=== PATIENT | male | born 1955 | race Caucasian/White ===

== ENCOUNTER 2017-02-25 05:59 | Inpatient (IN) | payer BC ==
[~2017-02-25] VITALS: Ht 182.9 cm; Wt 99.5 kg
[~2017-02-25 05:59] MED LIST: BYST5TAB2 PO; IBUP1TAB7 PO; LISI-519 PO; OMEP20TA93 PO
[2017-02-25] MEDS ORDERED: ATOR20TA15 PO (06:35)
[2017-02-25] MEDS: LACTATED RINGER'S 1000 ML IV PRN ×2 (06:45→11:28)
--- NOTE | 2017-02-25 06:48 | PD.VS.PN ---
Pre-operative Note Pre-operative diagnosis: PAD, R LE claudication Planned procedure: R groin reconstruction and angiogram, possible endovascular intervention Interval History: Pt has been feeling well over past days since I saw him in clinic. No changes in health that would preclude OR. Labs: pending Blood: T&S Imaging: CTA (ZAVALETA) reviewed. Orders: NPO Ancef 2g IV OCTOR Post-operative destination: PACU, CPCU Operative site marked: Yes Consent: Informed consent has been obtained from Joni Dave. I have explained the procedure in detail and discussed the risks, benefits, and potential complications. All questions have been answered. Patient contact information: [phone] Leonard Rebolledo MD Feb 25, 2017 06:48
[2017-02-25] MEDS ORDERED: INSULIN HUMAN REGULAR 1,000 UNITS/10 ML VIAL SQ PRN (07:00)
[2017-02-25] MEDS ORDERED: SODIUM CHLORID 0.9% 500 ML IV PRN (07:00)
[2017-02-25] MEDS ORDERED: POVIDONE IODINE 5% (ANTISEPSIS KIT) 4 APPLICATIONS EACH NARE PRN (07:00)
[2017-02-25] MEDS ORDERED: CHLORHEXIDINE GLUCONATE 2 % 1 PACK (2 CLOTHS) TOPICAL PRN (07:00)
[2017-02-25] MEDS ORDERED: METOPROLOL TARTRATE 25 MG TAB PO PRN (07:00)
[2017-02-25 07:02] LABS: AUTOMATED NEUTROPHIL # 5.3 TH/MM3 (1.8-7.7); BASOPHIL # 0.1 TH/MM3 (0-0.2); BASOPHIL % 0.8 % (0.0-2.0); EOSINOPHIL # 0.2 TH/MM3 (0-0.4); EOSINOPHIL % 1.9 % (0.0-4.0); HEMATOCRIT 46.2 % (39.0-51.0); HEMO FLAGS DIFF FINAL; LYMPH % 22.7 % (9.0-44.0); LYMPHOCYTE # 1.8 TH/MM3 (1.0-4.8); MEAN CELL VOLUME 88.3 FL (80.0-100.0); MEAN CORPUSCULAR HEMOGLOBIN 30.2 PG (27.0-34.0); MEAN CORPUSCULAR HGB CONC 34.1 % (32.0-36.0); MONO % 8.8 % (0.0-8.0); NEUT % 65.8 % (16.0-70.0); PLATELET COUNT 251 TH/MM3 (150-450); RED BLOOD COUNT 5.23 MIL/MM3 (4.50-5.90); RED CELL DISTRIBUTION WIDTH 13.6 % (11.6-17.2); WHITE BLOOD COUNT 8.1 TH/MM3 (4.0-11.0)
[2017-02-25] MEDS ORDERED: HEPARIN-NS/PF INJ 500 ML ONE ×2 (07:08→09:53)
[2017-02-25] MEDS ORDERED: THROMBIN (TOPICAL) 20,000 UNIT SPRAY KIT ONE (07:08)
[2017-02-25] MEDS ORDERED: HEPARIN SODIUM - IV 10,000 UNITS/10 ML VIAL ONE (07:08)
[2017-02-25] MEDS ORDERED: ceFAZolin 2 GM PREMIX 50 ML ONE (07:09)
[2017-02-25] MEDS ORDERED: BUPIVACAINE HCL PF 0.5% 30 ML VIAL ONE (07:09)
[2017-02-25 07:10] LABS: PROTHROMBIN TIME - PATIENT 10.3 SEC (9.8-11.6)
[2017-02-25 07:18] LABS: BICARBONATE 24.8 MEQ/L (21.0-32.0); POTASSIUM 4.6 MEQ/L (3.5-5.1)
[2017-02-25] MEDS ORDERED: MIDAZOLAM HCL 2 MG/2 ML VIAL ONE (07:32)
[2017-02-25] MEDS ORDERED: ACETAMINOPHEN 1000 MG/100 ML 100 ML IV ONE (07:32)
[2017-02-25] MEDS ORDERED: FAMOTIDINE 20 MG/2 ML VIAL ONE (07:32)
[2017-02-25] MEDS ORDERED: IOHEXOL 300 INJ 50 ML IV ONE (09:05)
--- NOTE | 2017-02-25 10:19 | HHI.PR ---
Immediate Post Op Note Procedure Date: Feb 25, 2017 Pre Op Diagnosis: PAD, R LE Post Op Diagnosis: PAD, R LE Surgeon: Leonard Rebolledo Front Facer(s): Mana Mata Procedure: 1. R ilioprofunda with 8mm Dacron 2. R SOLE FILLER-SFA with 8mm Dacron 3. R LE angiogram Findings: extensive groin disease Complications: none Specimen(s) removed: none for pathology Estimated blood loss: 150mL Anesthesia: General Drains: None Fluids: 1700mL IVF Urinary Output (mLs): 285 Patient to: PACU Patient Condition: Good Implant/Devices: SEE IMPLANT LOG (if applicable) Date/Time of Procedure: SEE SURGICAL CARE RECORD Leonard Rebolledo MD Feb 25, 2017 10:19
[2017-02-25] MEDS ORDERED: BISACODYL 10 MG SUPP RECTAL PRN (10:30)
[2017-02-25] MEDS ORDERED: SENNOSIDES 8.6 MG TAB PO PRN (10:30)
[2017-02-25] MEDS ORDERED: HYDROmorphone HCL 2 MG TAB PO PRN (10:30)
[2017-02-25] MEDS ORDERED: MAGNESIUM HYDROXIDE SUSP 30 ML CUP PO PRN (10:30)
[2017-02-25] MEDS ORDERED: LACTULOSE SYRUP 20 GM/30 ML CUP PO PRN (10:30)
[2017-02-25 11:28] VITALS: BP 121/82; PULSE 68; RESP 17; TEMP 98; O2SAT 97
[2017-02-25 15:03] VITALS: BP 99/78; PULSE 72; RESP 17; TEMP 98.1; O2SAT 95
[2017-02-25 15:05] VITALS: PULSE 72
[2017-02-25 19:00] VITALS: BP 80/64; PULSE 75; RESP 17; TEMP 98.1; O2SAT 92
--- NOTE | 2017-02-25 19:06 | EKG ---
Date Performed: 02/25/2017 Time Performed: 06:57:19 PTAGE: 61 years EKG: Sinus rhythm NORMAL ECG PREVIOUS TRACING : 04/01/2012 15.01 Compared to prior tracing no significant change DOCTOR: Arron Hough Interpretating Date/Time 02/25/2017 19:05:09
[2017-02-25] MEDS: FAMOTIDINE 20 MG TAB PO SCH (20:19)
[2017-02-25] MEDS: DOCUSATE SODIUM 50 MG/SENNA 8.6 MG TAB PO SCH (20:19)
[2017-02-25] MEDS: LISINOPRIL 5 MG TAB PO SCH (20:19)
[2017-02-25] MEDS: ATORVASTATIN 40 MG TAB PO SCH (21:00)
[2017-02-25 23:00] VITALS: BP 110/65; PULSE 71; RESP 18; TEMP 97.9; O2SAT 94
[2017-02-26] VITALS (15 sets, daily range): BP systolic 125–141; BP diastolic 62–72; PULSE 63–81; RESP 14–18; TEMP 97.9–99.3; O2SAT 92–97
--- NOTE | 2017-02-26 05:25 | MP ---
cc: PILI REBOLLEDO DATE OF SURGERY 02/25/2017 PREOPERATIVE DIAGNOSIS Right lower extremity claudication. POSTOPERATIVE DIAGNOSIS Right lower extremity claudication. PROCEDURE 1. Right ilioprofunda bypass. 2. Right common femoral to superficial femoral artery bypass. 3. Right lower extremity angiogram. ATTENDING SURGEON Pili Rebolledo MD ANESTHESIA General. INDICATIONS FOR PROCEDURE Mr. Dave is a 61-year-old gentleman with right lower extremity claudication. He was taken to the operating room for groin reconstruction and potential endovascular intervention of his lower extremities. DESCRIPTION OF PROCEDURE Informed consent was obtained from the patient. He was taken to the operating room and placed supine on the operating room table. An appropriate time-out was taken to confirm the patient's identity, the operative site and the planned procedure. The administration 2 grams of Ancef was initiated prior to the skin incision and will be discontinued after a single preoperative dose. Everyone in the room agreed with the time-out and we proceeded. He was prepped from his nipples to his toes. A vertical incision was made in the patient's right groin and carried down through the subcutaneous tissue with electrocautery. The external iliac artery was identified and dissected free up underneath the inguinal ligament. The profunda, common femoral and superficial femoral artery were all dissected free as well as side branches of the common femoral. The patient was systemically heparinized and then proximal and distal control of all these branches were obtained with profunda clamps and a longitudinal arteriotomy was made with an 11 blade, extended with [place] scissors. The artery was attempted to be endarterectomized but the endarterectomy plane was so deep to the remaining deep median adventitial layers were felt to be tenuous and as such the groin interposition was then selected. The distal external artery was transected with Metzenbaum scissors as well as the proximal profunda artery. The SFA was resected down several centimeters below its origin. 8-mm Dacron was brought up onto the field and sewn end-to-end to the external iliac artery and end-to-end to the profunda femoris artery. The clamps were released and there was a nice pulse in the profunda. Clamps were then reapplied to the Dacron and the anterior graftotomy was made with an 11 blade and extended with Marcus scissors. The 8-mm Dacron was spatulated and sewn end-to-side to the previous graft with 5-0 Prolene suture and end-to-end to the SFA with 5-0 Prolene suture. At the completion it was flushed and noted to be hemostatic. There is a nice pulse in both branches of the profunda as well as the SFA. A 21-gauge micropuncture needle was used to access the SFA jump graft. This was exchanged using Seldinger technique for a micropuncture sheath through which a 0.035 Glidewire was introduced. The micropuncture sheath was exchanged for a 6-Lao, 25-cm sheath and a CXI catheter was placed over the wire into the sheath and the Glidewire was exchanged for a SECTION MAINTAINER wire. Multiple attempts were made to recanalized the popliteal artery but these were unsuccessful. The wire, catheter and sheath were removed and the graftotomy was closed with 5-0 Prolene sutures. At the completion it was flushed and noted to be hemostatic. The clamps were released. The heparin was reversed with protamine. The wound was irrigated, infiltrated with Marcaine and closed with 2-0 Polysorb, 3-0 Polysorb and 4-0 Monocryl. Sponge and needle counts were correct at the end of the case. I was present and scrubbed for the entire procedure. INTERPRETATION OF IMAGES The patient has a patient distal SFA but an occluded popliteal artery and then yoana-geniculate collaterals reconstitute the peroneal artery in the proximal calf. MD CASSANDRA Abreu/NUNU /6:12 PM /5:04 AM
[2017-02-26 05:59] LABS: HEMATOCRIT 39.4 % (39.0-51.0); MEAN CELL VOLUME 88.5 FL (80.0-100.0); MEAN CORPUSCULAR HEMOGLOBIN 29.7 PG (27.0-34.0); MEAN CORPUSCULAR HGB CONC 33.5 % (32.0-36.0); PLATELET COUNT 242 TH/MM3 (150-450); RED BLOOD COUNT 4.45 MIL/MM3 (4.50-5.90); RED CELL DISTRIBUTION WIDTH 13.5 % (11.6-17.2); REVIEW FLAG FINAL; WHITE BLOOD COUNT 13.1 TH/MM3 (4.0-11.0)
[2017-02-26 06:18] LABS: BICARBONATE 27.2 MEQ/L (21.0-32.0); POTASSIUM 3.7 MEQ/L (3.5-5.1)
[2017-02-26] MEDS: FAMOTIDINE 20 MG TAB PO SCH ×2 (08:48→20:25)
[2017-02-26] MEDS: DOCUSATE SODIUM 50 MG/SENNA 8.6 MG TAB PO SCH ×2 (08:48→20:56)
[2017-02-26] MEDS: ASPIRIN 325 MG TAB PO SCH (08:48)
[2017-02-26] MEDS: LISINOPRIL 5 MG TAB PO SCH ×2 (08:56→20:25)
[2017-02-26] MEDS: NEBIVOLOL 5 MG TAB PO SCH (08:56)
--- NOTE | 2017-02-26 09:52 | PD.VS.PN ---
Subjective POD #: 1 Procedure(s): R ilioprofunda with 8mm Dacron R OUTPATIENT PHYSICAL THERAPIST ASSISTANT-SFA with 8mm Dacron R LE angiogram Subjective/Hospital Course Afebrile 61/M with improved RIGHT lower extremity pain and burning sensation Pt w/o complaints Pt ambulated this am w/o difficulty Objective Vitals/I&O Date Time Temp Pulse Resp B/P (MAP) Pulse Ox O2 Delivery O2 Flow Rate FiO2 02/26/17 07:00 99.3 63 14 135/72 (93) 97 02/26/17 07:00 63 02/26/17 07:00 Nasal Cannula 2.00 02/26/17 03:00 97.9 69 16 141/70 (93) 95 02/26/17 03:00 95 Nasal Cannula 3.00 02/26/17 02:58 18 02/25/17 23:00 71 02/25/17 23:00 97.9 71 18 110/65 (80) 94 02/25/17 23:00 94 Nasal Cannula 2.00 02/25/17 19:00 92 Nasal Cannula 2.00 02/25/17 19:00 98.1 75 17 80/64 (69) 92 02/25/17 15:05 72 02/25/17 15:03 98.1 72 17 99/78 (85) 95 02/25/17 11:28 98.0 68 17 121/82 (95) 97 02/26/17 02/26/17 02/26/17 07:00 15:00 23:00 Intake Total 960 ml Output Total 930 ml Balance 30 ml Exam: GENERAL: A&OX3,NAD,GCS15 SKIN: Warm and dry/ Provena wound vac to R groin intact w/o swelling or hematoma CARDIOVASCULAR: Regular rate and rhythm without murmurs, gallops, or rubs. RESPIRATORY: Breath sounds equal bilaterally. No accessory muscle use. GASTROINTESTINAL: Abdomen soft, non-tender, nondistended. MUSCULOSKELETAL: No cyanosis/edema/ LE warm w/ motor intact Palpable L DP Biphasic R DP/PT heard via Doppler Laboratory Laboratory Tests Test 02/26/17 04:00 White Blood Count 13.1 Red Blood Count 4.45 Hemoglobin 13.2 Hematocrit 39.4 Mean Corpuscular Volume 88.5 Mean Corpuscular Hemoglobin 29.7 Mean Corpuscular Hemoglobin Concent 33.5 Red Cell Distribution Width 13.5 Platelet Count 242 Mean Platelet Volume 8.2 Blood Urea Nitrogen 13 Creatinine 1.01 Random Glucose 109 Calcium Level 8.3 Sodium Level 139 Potassium Level 3.7 Chloride Level 104 Carbon Dioxide Level 27.2 Anion Gap 8 Estimat Glomerular Filtration Rate 75 Assessment and Plan Assessment: (1) PAD (peripheral artery disease) Plan 61/M S/P Right lower extremity revascularization -POD 1 Doing well- reports improved symptoms Pain controlled Pt ambulating w/o difficulty LE warm with motor intact Strong distal pulses present Plan Continue PT/OOB/ ambulation OK to transfer to CPCU D/C MIVF/A charleen/Jaswant EARL [facility]/[employer] [phone] Discharge Planning 1-3 days Ina Tompkins Feb 26, 2017 09:52
[2017-02-26] MEDS ORDERED: ENOXAPARIN SODIUM 30 MG/0.3 ML SYRINGE SQ SCH (10:00)
[2017-02-26] MEDS: ATORVASTATIN 40 MG TAB PO SCH (20:25)
[2017-02-27] VITALS (10 sets, daily range): BP systolic 139; BP diastolic 60–63; PULSE 73–90; RESP 16–18; TEMP 97.8–98.7; O2SAT 93
--- NOTE | 2017-02-27 07:38 | PD.VS.PN ---
Subjective POD #: 2 Procedure(s): R ilioprofunda with 8mm Dacron R PAYROLL BENEFITS CLERK-SFA with 8mm Dacron R LE angiogram Subjective/Hospital Course Looks great; foot felt better last night Ambulating Jaydon po voiding Objective Vitals/I&O Date Time Temp Pulse Resp B/P (MAP) Pulse Ox O2 Delivery O2 Flow Rate FiO2 02/27/17 07:15 85 02/27/17 07:15 97.8 80 18 139/60 (86) 93 02/27/17 06:09 90 02/27/17 05:17 78 02/27/17 04:05 76 02/27/17 03:10 98.7 82 16 139/63 (88) 93 02/27/17 03:10 74 02/27/17 02:20 77 02/27/17 01:16 81 02/27/17 00:13 73 02/26/17 23:25 98.2 81 18 133/64 (87) 93 02/26/17 23:23 76 02/26/17 22:00 76 02/26/17 21:00 74 02/26/17 20:00 74 02/26/17 19:00 92 Room Air 02/26/17 19:00 98.0 70 17 128/69 (88) 92 02/26/17 19:00 70 02/26/17 18:48 67 02/26/17 17:00 77 02/26/17 16:44 69 02/26/17 15:29 16 02/26/17 15:04 98.2 67 18 125/62 (83) 94 02/26/17 15:04 94 Room Air 02/26/17 15:04 65 02/26/17 14:17 65 02/26/17 12:23 70 02/26/17 11:00 98.9 73 16 138/70 (92) 92 02/27/17 02/27/17 02/27/17 07:00 15:00 23:00 Intake Total 720 ml Output Total 775 ml Balance -55 ml Exam: R groin slightly ecchymotic; VAC removed - no erythema Assessment and Plan Assessment: (1) PAD (peripheral artery disease) Plan POD#2 s/p R groin reconstruction doing well ready for d/c today Discharge Planning today Leonard Rebolledo MD Feb 27, 2017 07:38
--- NOTE | 2017-02-27 07:40 | PD.VS.DC ---
Discharge Summary Admission Date: Feb 25, 2017 at 05:59 Discharge Date: Feb 27, 2017 Admission Diagnosis: (1) PAD (peripheral artery disease) Discharge Diagnosis: (1) PAD (peripheral artery disease) ICD Codes: I73.9 - Peripheral vascular disease, unspecified Brief History from admission 61 yo male with PAD and short distance R LE claudication, failed conservative therapy. Procedure(s): R ilioprofunda with 8mm Dacron R SCREEN PRINTING STENCIL PREPARER-SFA with 8mm Dacron R LE angiogram Significant Findings Laboratory Tests Test 02/25/17 06:45 02/26/17 04:00 Monocytes (%) (Auto) 8.8 % (0.0-8.0) Chloride Level 109 MEQ/L (98-107) Estimat Glomerular Filtration Rate 77 ML/MIN (>89) 75 ML/MIN (>89) White Blood Count 13.1 TH/MM3 (4.0-11.0) Red Blood Count 4.45 MIL/MM3 (4.50-5.90) Random Glucose 109 MG/DL (74-106) Calcium Level 8.3 MG/DL (8.5-10.1) Hospital Course: Pt underwent extensive R groin reconstruction on 02/25. Did great post- operatively. Pain controlled, ambulating, and ricardo reg diet. Noted that his foot felt much better than preop. Ready for d/c POD#2. Discharge Condition: Good Discharge Disposition: Discharge Home Any questions or concerns: Call [facility] at [facility] [phone] Leonard Rebolldeo MD Feb 27, 2017 07:40
[2017-02-27] MEDS: LISINOPRIL 5 MG TAB PO SCH (07:56)
[2017-02-27] MEDS: DOCUSATE SODIUM 50 MG/SENNA 8.6 MG TAB PO SCH (07:57)
[2017-02-27] MEDS: ASPIRIN 325 MG TAB PO SCH (07:57)
[2017-02-27] MEDS: NEBIVOLOL 5 MG TAB PO SCH (07:57)
[2017-02-27] MEDS: FAMOTIDINE 20 MG TAB PO SCH (07:57)
[2017-02-27] MEDS ORDERED: ENOXAPARIN SODIUM 40 MG/0.4 ML SYRINGE SQ SCH (09:00)
== END 2017-02-27 10:10 | disposition home or self-care (01) | DRG 272 ==
LOC: HSDI 05:59 → HCVI 11:00 → HCPC 02-26 12:15
PROVIDERS: ADMIT Surgery; ATTEND Surgery
PROC: 041H0JH Bypass Right External Iliac Artery to Right Femoral Artery with Synthetic Substitute, Open Approach (ICD-10-PCS; principal; 2017-02-25 07:42)
PROC: 041K0JH Bypass Right Femoral Artery to Right Femoral Artery with Synthetic Substitute, Open Approach (ICD-10-PCS; 2017-02-25 07:42)
PROC: B41F1ZZ Fluoroscopy of Right Lower Extremity Arteries using Low Osmolar Contrast (ICD-10-PCS; 2017-02-25 07:42)
DX: I73.9 Peripheral vascular disease, unspecified (principal)
CPT/HCPCS: 80048; 85025; 85027; 85610; 86850; 86900; 86901; 93005; J0131; J0690; J1644; J1650; J2250; J7120

== ENCOUNTER 2017-07-03 06:46 | Day surgery (SDC) | payer BC ==
[~2017-07-03] VITALS: Ht 182.9 cm; Wt 93.7 kg
[~2017-07-03 06:46] MED LIST changes: +ATOR20TA15 PO
[2017-07-03] MEDS ORDERED: IOHEXOL 350 MG/ML 100 ML BTL (for Cath Lab) OTHER ONE (06:47)
[2017-07-03 07:32] VITALS: BP 100/74; PULSE 68; RESP 18; TEMP 98.5; O2SAT 95
[2017-07-03] MEDS ORDERED: LISI20TA PO (07:32)
[2017-07-03] MEDS ORDERED: METO100T PO (07:32)
[2017-07-03] MEDS ORDERED: SODIUM BICARBONATE 100 MEQ in D5W 1000 ML IV SCH (07:45)
[2017-07-03] MEDS ORDERED: MIDAZOLAM HCL 5 MG/5 ML VIAL ONE (09:40)
[2017-07-03] MEDS ORDERED: HEPARIN-NS/PF FLUSH BAG 2,000 ML IV FLUSH ONE (09:40)
--- NOTE | 2017-07-03 09:43 | PD.VS.PN ---
Pre-operative Note Pre-operative diagnosis: R LE claudication, PAD Planned procedure: Aortogram w/ R LE angiogram, possible endovascular intervention Interval History: Pt has persistent R LE claudication but no rest pain and no tissues loss. Orders: NPO Post-operative destination: DOCU Operative site marked: Yes Consent: Informed consent has been obtained from Joni Dave. I have explained the procedure in detail and discussed the risks, benefits, and potential complications. All questions have been answered. Leonard Rebolledo MD Jul 03, 2017 09:43
[2017-07-03] MEDS ORDERED: LIDOCAINE HCL 1% PF 30 ML VIAL ONE (09:50)
[2017-07-03] MEDS ORDERED: HEPARIN SODIUM - IV 10,000 UNITS/10 ML VIAL ONE (10:05)
--- NOTE | 2017-07-03 10:31 | HHI.PR ---
cc: Leonard Rebolledo MD Immediate Post Op Note Procedure Date: Jul 03, 2017 Pre Op Diagnosis: R LE claudication, PAD Post Op Diagnosis: R LE claudication, PAD Surgeon: Leonard Rebolledo Crawler Tractor Operator(s): none Procedure: Aortogram w/ R LE angiogram R CHERYL orbital atherectomy, LINING PRINTER R SALESPERSON DRIVER angioseal Findings: high grade stenosis R CHERYL, successful LINING PRINTER to 8mm Additional Information: L SALESPERSON DRIVER 4F sheath removed in laboratory technical specialist Complications: none Specimen(s) removed: none Estimated blood loss: 10mL Anesthesia: MAC Drains: None Patient to: Other (DOCU) Patient Condition: Good Implant/Devices: SEE IMPLANT LOG (if applicable) Date/Time of Procedure: SEE SURGICAL CARE RECORD Leonard Rebolledo MD Jul 03, 2017 10:31
[2017-07-03] MEDS ORDERED: CLOPIDOGREL 75 MG TAB PO ONE (10:45)
--- NOTE | 2017-07-03 10:49 | CATHPROC ---
[place] HIS Report Study Information Study Number Admission Scheduled Start Study Start [id number] Jul 03 2017 6:46AM 07/03/2017 Jul 03 2017 9:33AM [place] Service Cath Endovascular Study Admit Source Facility Department Other [facility] - Live In Housekeeper Physician and Clinical Staff Initial MD Rebolledo, Leonard Log Brander Amber Almanzar,JESSICA Recorder Shae Herrera,RT(R) (BS) Scrub Chuy Greer,RT(R) Procedures Performed Procedure Location (Site) Vessel Name Abdominal Angiogram Abd Aorta (A3) Aorta Abdominal Angiogram Iliac R. Com. (R4) [place] Art. OPERATIONS VICE PRESIDENT Iliac R. Com. (R4) [place] Art. Wire insertion Fem Art (right) Femoral Art Equipment Time Hvac Maintenance Technician Description Size Mfg Part Number Used/Scraped [id number] 09:44 ANGIO-DYNAMICS OMNI FLUSH 65CM CATHETER FR 4 Used *[id number] DBP- CARDIOVASCULAR CATHETER, STEALTH SOLID 10:09 [id number] Used SYSTEMS INC. 2.0MM *[id number] CARDIOVASCULAR VPR-[id number] 10:08 WIRE, FIRM (VIPER) 335 Used SYSTEMS INC. *[id number] INTRODUCER SET, 09:43 COOK INC. FR 5 [id number] *[id number] Used MICROPUNCTURE STIFF BALLOON, ADVANCE 35 LP .035 8 [id number] 10:18 COOK/LIBRADO 8X2 Used X2 *[id number] CATHETER, STRAIGHT TEMPO [id number] 10:08 CORDIS/ LIBRADO FR 4 Used AQUA 65CM *[id number] 10:17 DAIG/ST. TAYLOR MEDICAL ANGIOSEAL, FR6 VIP FR 6 Used *[id number] 09:43 CellSpin INDUSTRIES PACK, CCL CUSTOM * Used *[id number] TUBING, PRESSURE INJECTION [id number] 09:43 NAMIC PACER 72" Used 72" *[id number] 09:43 NYCOMED OMNIPAQUE, 300 MG, 150ML 150ML [id number] Used 09:43 NYCOMED OMNIPAQUE, 300 MG, 50ML 50ML [id number] Used [id number] 09:43 ADAM MEDICAL BLANKET,WARM AIR CCL * Used *[id number] 09:44 TERUMO MEDICAL SHEATH, FR4 TERUMO (10CM) FR 4 Used *[id number] 10:03 TERUMO MEDICAL SHEATH, FR6 TERUMO (10CM) FR 6 Used *[id number] WIRE, ANGLED GLIDE .035 [id number] 09:43 TERUMO MEDICAL/LIBRADO 260CM Used 260CM *[id number] Equipment Model, Serial, Lot Number and Expiration Data Description Model Number Serial Number Lot Number Expiration Date ANGIOSEAL, FR6 HECTOR [id number] 01-15-2018 CATHETER, STEALTH SOLID 2.0MM [id number] 03-17-2019 History: Allergies Allergy Reaction No Known Allergies Medication Medication Total Dose (Bolus/Oral) Medication Total Dosage/Unit 1% XYLOCAINE 40 mL FENTANYL 125 mcg HEPARIN 5000 units OXYGEN 2 l/min VERSED 6 mg Medications (Bolus/Oral) Medication Time Given Dosage/Unit Administered By Reason OXYGEN 07/03/2017 9:48:12 AM 2 l/min Amber Almanzar Patient arrived on 2 l/min OXYGEN given by Amber Almanzar RN via Nasal. VERSED 07/03/2017 9:48:37 AM 2 mg Amber Almanzar 2 mg VERSED given in lab by Amber Almanzar RN in Left Antecubital via Peripheral IV. FENTANYL 07/03/2017 9:49:59 AM 50 mcg Amber Almanzar 50 mcg FENTANYL given in lab by Amber Almanzar RN in Left Antecubital via Peripheral IV. 1% XYLOCAINE 07/03/2017 9:52:15 AM 20 mL Leonard Rebolledo 20 mL 1% XYLOCAINE given in lab by Leonard Rebolledo in Left Groin via Subcutaneous. VERSED 07/03/2017 9:52:19 AM 2 mg Amber Almanzar 2 mg VERSED given in lab by Amber Almanzar RN in Left Antecubital via Peripheral IV. FENTANYL 07/03/2017 9:53:21 AM 50 mcg Amber Almanzar 50 mcg FENTANYL given in lab by Amber Almanzar RN in Left Antecubital via Peripheral IV. 1% XYLOCAINE 07/03/2017 10:03:47 AM 20 mL Leonard Rebolledo 20 mL 1% XYLOCAINE given in lab by Leonard Rebolledo in Right Groin via Subcutaneous. HEPARIN 07/03/2017 10:04:29 AM 5000 units Amber Almanzar 5000 units HEPARIN given in lab by Amber Almanzar RN via Peripheral IV. VERSED 07/03/2017 10:15:42 AM 2 mg Amber Almanzar 2 mg VERSED given in lab by Amber Almanzar, RN in Left Antecubital via Peripheral IV. FENTANYL 07/03/2017 10:16:48 AM 25 mcg Amber Almanzar 25 mcg FENTANYL given in lab by Amber Almanzar, RN in Left Antecubital via Peripheral IV. Medication (Drip) Medication Time Given Dosage/Unit Concentration/Unit Diluent (ml) Solution IV Solutions 07/03/2017 9:33:21 AM 0 mL (IV) 500 NaCl .9 Patient arrived on IV Solutions in Left Antecubital via Peripheral IV. Pump/Drip Flow = 30 ml/hr usin g NaCl .9. SODIUM BICARBONATE 07/03/2017 9:49:06 AM 125 mL/hr mL D5W Patient arrived on 125 mL/hr SODIUM BICARBONATE via Peripheral IV. Pump/Drip Flow = 0 ml/hr using D5W . Initial Case Assessment Cardiovascular HR NIBP 67 124/85 Edema Present Skin color Skin None Normal Warm Dry Circulatory - Right Pulses Dorsalis Pedis Femoral d 2 Scale (0,1,2,3,4,d) Circulatory - Left Pulses Dorsalis Pedis Femoral d 2 Scale (0,1,2,3,4,d) Circulatory - Lower Extremities Color Lower Right Color Lower Left Normal Normal Neurological State Oriented to time-place- Alert Moves all extremities person Respiration - General Respiration Rate SpO2 (%) (B/min) 12 95 Chronological Log Time Study Chronological Log 9:28:10 Patient Name, D.O.B, / Armband Verified By R.N. 9:28:57 Patient arrived via Bed. 9:33:04 Consent signed by the physician and the patient and verified by the Live In Housekeeper staff. 9:33:05 Pre-op and post- op instructions given; patient acknowledges understanding of instructions. 9:33:05 Verbal Stimulation=2 Physical Stimulation=2 Airway=2 Respiration=2 TOTAL=8. (0=absent, 1=li mited, 2=present) 9:33:07 Presedation assessment performed by Live In Housekeeper RN. 9:33:15 Patient has been NPO for More than 6Hrs. 9:33:16 Skin Breakdown- 9:33:16 Patient Warmer Placed on the Table. 9:33:17 Faisal Prominences Protected 9:33:20 A # 20 IV was noted in the Antecubital (left). Grade = 0 9:33:21 Patient arrived on IV Solutions in Left Antecubital via Peripheral IV. Pump/Drip Flow = 30 ml/hr using NaCl .9. 9:33:24 History and physical on the chart or being dictated. Assessment: Initial Case, HR=67 BPM, TCDW=513/85 mmhg, Edema=None, Color=Normal, Skin = Warm, D ry Right Pulses: Ortiz Ped=d, Femoral=2 Left Pulses: Ortiz Ped=d, Femoral=2 9:33:25 Lower Right Extremities: Color=Normal Lower Left Extremities: Color=Normal Neurological: State=Alert, Ox3, ZHU Respiration: Resp=12 B/min, SpO2=95 % Vitals capture started with the following parameters, Patient=Adult, Interval=5 min, Initial Pr zndykv=019 mmHg, 9:34:38 Deflation Rate=5 mmHg, Cuff placed on Right Ankle 9:35:18 VP=262 bpm, NEYL=772/85 mmhg, SpO2=98.0 %, Resp=9 B/min, Pain=0, Leodan=10, Méndez=2 9:39:29 Reference ECG taken 9:40:11 HR=66 bpm, KQCL=269/82 mmhg, SpO2=96.0 %, Resp=12 B/min, Pain=0, Leodan=10, Méndez=2 Time Out. Correct patient, correct procedure, correct physician, power injector loaded, or not loaded with contrast with 9:42:30 surgical team present. Time Out Concurred by MD and individual staff in procedure. 9:45:14 HR=66 bpm, NIBP=97/68 mmhg, SpO2=98.0 %, Resp=11 B/min, Pain=0, Leodan=10, Méndez=2 9:48:12 Patient arrived on 2 l/min OXYGEN given by Amber Almanzar, JESSICA via Nasal. 9:48:37 2 mg VERSED given in lab by Amber Almanzar, JESSICA in Left Antecubital via Peripheral IV. 9:49:06 Patient arrived on 125 mL/hr SODIUM BICARBONATE via Peripheral IV. Pump/Drip Flow = 0 ml/hr using D5W. 9:49:59 50 mcg FENTANYL given in lab by Amber Almanzar, RN in Left Antecubital via Peripheral IV. 9:50:11 HR=65 bpm, NIBP=86/55 mmhg, SpO2=95.0 %, Resp=15 B/min, Pain=0, Leodan=10, Méndez=2 9:52:11 Case Start 9:52:15 20 mL 1% XYLOCAINE given in lab by Leonard Rebolledo in Left Groin via Subcutaneous. 9:52:19 2 mg VERSED given in lab by Amber Almanzar, RN in Left Antecubital via Peripheral IV. 9:53:07 Access site was Left Femoral Artery. A INTRODUCER SET, MICROPUNCTURE STIFF FR 5 was advanced into the Fem Art (left) using the Percu taneous :53:13 technique. 9:53:21 50 mcg FENTANYL given in lab by Amber Almanzar, JESSICA in Left Antecubital via Peripheral IV. A SHEATH, FR4 TERUMO (10CM) FR 4 was exchanged in the Fem Art (left). This was necessary in ord er to 9:54:00 accomodate a larger catheter. A OMNI FLUSH 65CM CATHETER FR 4 was advanced over a wire. OMNIPAQUE, 300 MG, 150ML 150ML was us ed for 9:54:52 injections. 9:55:10 HR=66 bpm, NIBP=88/55 mmhg, SpO2=97.0 %, Resp=13 B/min, Pain=0, Leodan=10, Méndez=2 9:57:03 Through a OMNI FLUSH 65CM CATHETER FR 4, The Abdominal Aorta was injected with 10 cc's of co ntrast. Through a OMNI FLUSH 65CM CATHETER FR 4, The Abdominal Aorta was injected with 10 cc's of contr ast. Injections 9:58:28 continued down the right leg. 10:00:09 HR=66 bpm, NIBP=97/67 mmhg, SpO2=99.0 %, Resp=8 B/min, Pain=0, Leodan=10, Méndez=2 10:03:47 20 mL 1% XYLOCAINE given in lab by Leonard Rebolledo in Right Groin via Subcutaneous. 10:03:54 Access site was Right Femoral Artery. A INTRODUCER SET, MICROPUNCTURE STIFF FR 5 was advanced into the Fem Art (right) using the Perc utaneous 10:04:06 technique. A SHEATH, FR6 TERUMO (10CM) FR 6 was exchanged in the Fem Art (right). This was necessary in or ernestina to 10:04:14 accomodate a larger catheter. 10:04:29 5000 units HEPARIN given in lab by Amber Almanzar, JESSICA via Peripheral IV. 10:05:10 HR=66 bpm, HGRG=260/70 mmhg, SpO2=99.0 %, Resp=14 B/min, Pain=0, Leodan=10, Méndez=2 A CATHETER, STRAIGHT TEMPO AQUA 65CM FR 4 was advanced over a wire. OMNIPAQUE, 300 MG, 150ML 15 0ML 10:08:35 was used for injections. 10:08:48 Through a CATHETER, STRAIGHT TEMPO AQUA 65CM FR 4, The Iliac R. Com. (R4) was injected with 8 cc's of contrast. 10:09:03 Catheter was removed 10:09:07 A WIRE, FIRM (VIPER) 335 was inserted via Fem Art (right). 10:09:43 An CATHETER, STEALTH SOLID 2.0MM catheter was inserted into the Fem Art (right). 10:10:15 HR=66 bpm, NIBP=91/56 mmhg, SpO2=99.0 %, Resp=16 B/min, Pain=0, Leodan=10, Méndez=2 10:13:09 CSI atherectomy in progress 10:13:50 CSI atherectomy in progress 10:14:43 CSI atherectomy in progress 10:15:12 HR=69 bpm, NIBP=93/67 mmhg, SpO2=99.0 %, Resp=19 B/min, Pain=0, Leodan=10, Méndez=2 10:15:42 2 mg VERSED given in lab by Amber Almanzar, RN in Left Antecubital via Peripheral IV. 10:16:00 CSI Catheter was removed w/o difficulty 10:16:48 25 mcg FENTANYL given in lab by Amber Almanzar, RN in Left Antecubital via Peripheral IV. 10:17:43 A BALLOON, ADVANCE 35 LP .035 8 X 2 8 X 2 was inserted over wire via the Fem Art (right). 10:18:15 In the Iliac R. Com. (R4) a BALLOON, ADVANCE 35 LP .035 8 X 2 8 X 2 was inflated to 8 atms for 120 seconds. 10:20:48 HR=60 bpm, LHPU=180/59 mmhg, SpO2=98.0 %, Resp=14 B/min, Pain=0, Leodan=10, Méndez=2 10:21:40 Balloon Removed A OMNI FLUSH 65CM CATHETER FR 4 was advanced over a wire. OMNIPAQUE, 300 MG, 150ML 150ML was us ed for 10:22:05 injections. 10:23:13 Through a OMNI FLUSH 65CM CATHETER FR 4, The Abdominal Aorta was injected with 10 cc's of c ontrast. 10:23:41 Catheter was removed 10:25:16 HR=65 bpm, CKZJ=396/67 mmhg, SpO2=99.0 %, Resp=14 B/min, Pain=0, Leodan=10, Méndez=2 10:25:49 ANGIOSEAL, FR6 VIP FR 6 placement in the Fem Art (right) 10:25:57 Case End 10:26:46 DOCU called. Spoke to Micheal. 10:27:34 Activated Clotting Time Drawn 10:27:44 Catheter(s) removed without difficulty 10:27:54 No case complications noted. 10:27:59 Holding Area notified of successful intervention. 10:28:00 Bedside Report will be given. 10:28:01 Implantable Device card placed in patient's chart. 10:30:15 HR=63 bpm, FJZN=294/73 mmhg, SpO2=99.0 %, Resp=16 B/min, Pain=0, Leodan=10, Méndez=2 10:31:27 ACT (Normal Range 90-180) = 205 10:34:08 Sheath removed; pressure applied to access site. 10:35:16 HR=64 bpm, VPDX=275/76 mmhg, BvK2=723.0 %, Resp=16 B/min 10:40:17 HR=62 bpm, DUNL=233/65 mmhg, SpO2=99.0 %, Resp=14 B/min 10:45:18 HR=62 bpm, MSQJ=930/68 mmhg, SpO2=99.0 %, Resp=17 B/min 10:45:57 Sterile dressing applied to site 10:51:14 Patient moved to stretcher End Study - Contrast Media Used In Study Contrast Total Opened (mL) Total Used (mL) Total Wasted (mL) Omnipaque 70 70 0 End Study - Radiation Exposure Fluoro Time (minutes) 6.6 End Study - Patient Disposition Complications Transferred To Interventional Outcome No Live In Housekeeper Holding successful
--- NOTE | 2017-07-03 11:54 | MP ---
cc: Leonard Rebolledo MD DATE OF OPERATION: 07/03/2017 PREOPERATIVE DIAGNOSIS: Right lower extremity claudication, peripheral arterial occlusive disease. POSTOPERATIVE DIAGNOSIS: Right lower extremity claudication, peripheral arterial occlusive disease. PROCEDURE PERFORMED: 1. Aortogram with right lower extremity angiograms. 2. Right common iliac artery atherectomy with angioplasty. ATTENDING SURGEON: Leonard Rebolledo MD. ANESTHESIA: Local with sedation. INDICATION: Mr. Dave is a 61-year-old man with right lower extremity claudication. He underwent a groin reconstruction with resolution of his claudication, but now his symptoms have recurred and his ABIs are diminished. There is no prior catheter-based imaging available for my review. DESCRIPTION OF PROCEDURE: Informed consent was obtained from the patient. He was taken to the operating room, placed supine on the operating room table. An appropriate time-out was taken to ensure the patient's identity, operative site and planned procedure. The administration of antibiotics was not necessary as this is a clean procedure without planned implantation of any foreign object. Everyone in the room agreed with the time-out and we proceeded. His bilateral groins were prepped and draped and the left groin was anesthetized with 1% lidocaine. A 21-gauge micropuncture needle was used to access the left common femoral artery. This was exchanged using Seldinger technique for the micropuncture sheath, through which was 0.035 Glidewire was introduced. The micropuncture sheath were exchanged for a 4-Belgian sheath and a VCF catheter was placed over the wire and through the sheath. An aortogram and pelvic arteriogram was obtained. The Glidewire and VCF catheter were then navigated down to the right common femoral artery and right extremity arteriograms obtained. The Glidewire and VCF catheter were backed up to the aorta and a 21-gauge micropuncture needle was used to access the right common femoral artery. This was exchanged using Seldinger technique for the micropuncture sheath through which a 0.035 Glidewire was introduced and the micropuncture sheath was exchanged for a 6-Belgian sheath. A catheter was advanced up to the aorta and the Glidewire was exchanged for a Viper wire. A CSI orbital atherectomy device was then used to atherectomize the common iliac artery and this was postdilated with an 8 mm balloon. The completion angiogram showed an excellent result without any recoil extravasation. The wire, catheter and sheaths were removed. The right groin was closed with Angio-Seal. The left groin was closed with manual pressure. There were no complications. I was present and scrubbed for the entire procedure. INTERPRETATION: The patient has a patent infrarenal aorta, common iliac arteries, external iliac arteries, and hypogastric arteries bilaterally. The right common iliac artery has a high-grade calcific stenosis. The right iliofemoral and femoral to SFA bypass are widely patent. The distal SFA is patent. The popliteal artery is occluded and there is 3-vessel runoff with tibial reconstitution via perigeniculate collaterals. After atherectomy and angioplasty of the common iliac artery, there was reasonable resolution of the stenosis and the stenosis is no longer flow-limiting. Leonard Rebolledo MD RJF/DL , 11:12 AM , 11:53 AM
[2017-07-04] MEDS ORDERED: CLOPIDOGREL 75 MG TAB PO SCH (09:00)
== END 2017-07-03 14:21 | disposition home or self-care (01) ==
LOC: HDIC 06:46 → HDOC 06:46
PROVIDERS: ATTEND Surgery
DX: I70.211 Atherosclerosis of native arteries of extremities with intermittent claudication, right leg (principal); I10 Essential (primary) hypertension; I48.91 Unspecified atrial fibrillation
CPT/HCPCS: 36200; 36247; 37225; 75625; 75710; 85002; 99152; 99153; C1714; C1725; C1760; C1769; C1893; G0269; J1644; J2250; J3010; Q9967

== ENCOUNTER → 2017-08-14 | Outpatient (CLI) | payer BC ==
[~2017-08-14] MED LIST changes: -BYST5TAB2 PO; -IBUP1TAB7 PO; -LISI-519 PO; +LISI20TA PO; +METO100T PO; -OMEP20TA93 PO; +OXYC1CAP PO; +PLAV75TA29 PO; +PRIL20TA2 PO; +WALKER GLIDE WH1 MI1
[2017-08-14 12:45] LABS: HEMATOCRIT 42.8 % (39.0-51.0); HEMOGLOBIN 14.6 GM/DL (13.0-17.0); MEAN CELL VOLUME 85.4 FL (80.0-100.0); MEAN CORPUSCULAR HEMOGLOBIN 29.1 PG (27.0-34.0); MEAN CORPUSCULAR HGB CONC 34.1 % (32.0-36.0); MEAN PLATELET VOLUME 7.6 FL (7.0-11.0); PLATELET COUNT 291 TH/MM3 (150-450); RED BLOOD COUNT 5.01 MIL/MM3 (4.50-5.90); RED CELL DISTRIBUTION WIDTH 13.5 % (11.6-17.2); WHITE BLOOD COUNT 7.9 TH/MM3 (4.0-11.0)
[2017-08-14 12:48] LABS: BILIRUBIN, URINE NEG (NEG); BLOOD, URINE NEG (NEG); GLUCOSE,URINE NEG (NEG); KETONE, URINE NEG (NEG); NITRITE,URINE NEG (NEG); PH, URINE 7.5 (5.0-8.5); URINE COLOR YELLOW (YELLW/STRAW); URINE LEUKOCYTE ESTERASE NEG (NEG)
[2017-08-14 13:05] LABS: BICARBONATE 30.4 MEQ/L (21.0-32.0); CREATININE 1.05 MG/DL (0.60-1.30)
--- NOTE | 2017-08-14 13:24 | RADRPT ---
EXAM DATE: 08/14/2017 12:47 PM EDT AGE/SEX: 61 years / Male INDICATIONS: Evaluate for pneumonia, pneumothorax, or communicable disease. Pre op for right lower e xtremity distal bypass. CLINICAL DATA: This is the patient's initial encounter. Patient reports that signs and symptoms have been present for 1 day and indicates a pain score of 0/10. MEDICAL/SURGICAL HISTORY: None. None. COMPARISON: No prior Jack exams available for comparison. FINDINGS: Old rib fractures with pleural thickening is seen on the left. Mild hyperinflation. The right lung is clear. Minimal bibasilar parenchymal changes are evident. The heart and pulmonary v ascularity are normal. CONCLUSION: Mild hyperinflation otherwise negative Electronically signed by: Rex Valencia MD 08/14/2017 1:23 PM EDT
--- NOTE | 2017-08-15 14:46 | EKG ---
Date Performed: 08/14/2017 Time Performed: 11:26:08 PTAGE: 61 years EKG: Sinus rhythm NORMAL ECG Since the PREVIOUS TRACING , no significant change noted PREVIOUS TRACIN02/25/2017 06.57 DOCTOR: Sai Harrington Interpretating Date/Time 08/15/2017 14:44:25
== END ==
LOC: CPRE 11:33
PROVIDERS: ATTEND Surgery
DX: Z01.810 Encounter for preprocedural cardiovascular examination (principal); Z01.811 Encounter for preprocedural respiratory examination; Z01.812 Encounter for preprocedural laboratory examination; I73.9 Peripheral vascular disease, unspecified
CPT/HCPCS: 36415; 71046; 80048; 81001; 85027; 85610; 85730; 93005

== ENCOUNTER 2017-08-22 05:55 | Inpatient (IN) | payer BC ==
[~2017-08-22] VITALS: Ht 182.9 cm; Wt 91.0 kg
[~2017-08-22 05:55] MED LIST changes: -OXYC1CAP PO; -WALKER GLIDE WH1 MI1
[2017-08-22] MEDS ORDERED: LACTATED RINGER'S 1000 ML IV PRN (06:15)
[2017-08-22] MEDS ORDERED: CHLORHEXIDINE GLUCONATE 2 % 1 PACK (2 CLOTHS) TOPICAL PRN (06:15)
[2017-08-22] MEDS ORDERED: SODIUM CHLORID 0.9% 500 ML IV PRN (06:15)
[2017-08-22] MEDS ORDERED: METOPROLOL TARTRATE 25 MG TAB PO PRN (06:15)
[2017-08-22] MEDS ORDERED: POVIDONE IODINE 5% (ANTISEPSIS KIT) 4 APPLICATIONS EACH NARE PRN (06:15)
[2017-08-22] MEDS: BUPIVACAINE HCL PF 0.5% 10 ML VIAL ONE ×2 (06:56→08:41)
[2017-08-22] MEDS ORDERED: HEPARIN SODIUM - IV 10,000 UNITS/10 ML VIAL ONE ×2 (06:56→08:38)
[2017-08-22] MEDS ORDERED: THROMBIN (TOPICAL) 20,000 UNIT SPRAY KIT ONE (06:56)
[2017-08-22] MEDS ORDERED: ceFAZolin 2 GM PREMIX 50 ML ONE (06:56)
[2017-08-22] MEDS ORDERED: PROTAMINE SULFATE 50 MG/5 ML VIAL ONE (06:56)
[2017-08-22] MEDS ORDERED: HEPARIN-NS/PF INJ 500 ML ONE (06:56)
[2017-08-22] MEDS ORDERED: ACETAMINOPHEN 1000 MG/100 ML 100 ML IV ONE (07:18)
--- NOTE | 2017-08-22 07:28 | HHI.HP ---
History of Present Illness Chief Complaint: R LE disabling claudication and near rest pain, PAD History of Present Illness 61 yo male with R LE disabling claudication and nighttime pain. No tissue loss and no motor dysfunction. Prior R groin reconstruction and iliac atherectomy with interval relief that has since gone away. Presents for R SFA-PT bypass. No autogenous conduit. Past/Family/Social History Past Medical History PAD HTN CAD CVOD HTN XOL Past Surgical History B CEA complicated by voice alterations hip replacement tonsillectomy spine surgery hernia Social History nonsmoker Family History NC Home Medications Reported Medications Omeprazole Magnesium (Prilosec) 20 Mg Tab, 1 TAB PO EVERY OTHER DAY 08/14/17 Clopidogrel (Plavix) 75 Mg Tab, 75 MG PO DAILY for Blood Clot Prevention, #30 TAB 0 Refills 08/14/17 Metoprolol Tartrate (Metoprolol Tartrate) 100 Mg Tab, 100 MG PO DAILY, #30 TAB 0 Refills 07/03/17 Lisinopril-Hctz (Lisinopril-Hctz) 20-12.5 Mg Tab, 1 TAB PO DAILY for Blood Pressure Management, #30 TAB 0 Refills 07/03/17 Atorvastatin (Atorvastatin) 20 Mg Tab, 20 MG PO DAILY for Cholesterol Management , #30 TAB 0 Refills 02/25/17 Coded Allergies: No Known Allergies (Verified Allergy, Unknown, 08/22/17) Review of Systems Constitutional: DENIES: Diaphoretic episodes, Fatigue, Fever, Weight gain, Weight loss, Chills, Dizziness, Change in appetite, Night Sweats Cardiovascular: DENIES: Chest pain, Palpitations, Syncope, Dyspnea on Exertion , PND, Lower Extremity Edema, Orthopnea, Claudication Physical Exam Vitals/I&O Date Time Temp Pulse Resp B/P (MAP) Pulse Ox O2 Delivery O2 Flow Rate FiO2 08/22/17 06:45 98.7 68 20 128/78 (95) 97 Neuro: alert, oriented, no distress HEENT: NC/AT Neck: no JVD Heart: reg rate Lungs: clear B Abdomen: NT Vascular: nonpalpable R LE pulses Extremities: no tissue loss Hct 43 plt 291 INR 1.0 cr 1.0 angiogram reviewed - popliteal occlusion Caprini VTE Risk Assessment Caprini VTE Risk Assessment: No/Low Risk (score <= 1) Caprini Risk Assessment Model Point Value = 1 Point Value = 2 Point Value = 3 Point Value = 5 Age 41-60 Minor surgery BMI > 25 kg/m2 Swollen legs Varicose veins or History of unexplained or recurrent spontaneous Oral contraceptives or hormone replacement Sepsis (< 1 month) Serious lung disease, including pneumonia (< 1 month) Abnormal pulmonary function Acute myocardial infarction Congestive heart failure (< 1 month) History of inflammatory bowel disease Medical patient at bed rest Age 61-74 Arthroscopic surgery Major open surgery (> 45 min) Laparoscopic surgery (> 45 min) Malignancy Confined to bed (> 72 hours) Immobilizing plaster cast Central venous access Age >= 75 History of VTE Family history of VTE Factor V Leiden Prothrombin [id number] Lupus anticoagulant Anticardiolipin antibodies Elevated serum homocysteine Heparin-induced thrombocytopenia Other congenital or acquired thrombophilia Stroke (< 1 month) Elective arthroplasty Hip, pelvis, or leg fracture Acute spinal cord injury (< 1 month) Prophylaxis Regimen Total Risk Factor Score Risk Level Prophylaxis Regimen 0-1 Low Early ambulation 2 Moderate Order ONE of the following: *Sequential Compression Device (SCD) *Heparin 5000 units SQ BID 3-4 Higher Order ONE of the following medications: *Heparin 5000 units SQ TID *Enoxaparin/Lovenox 40 mg SQ daily (WT < 150 kg, CrCl > 30 mL/min) *Enoxaparin/Lovenox 30 mg SQ daily (WT < 150 kg, CrCl > 10-29 mL/min) *Enoxaparin/Lovenox 30 mg SQ BID (WT < 150 kg, CrCl > 30 mL/min) AND/OR *Sequential Compression Device (SCD) 5 or more Highest Order ONE of the following medications: *Heparin 5000 units SQ TID (Preferred with Epidurals) *Enoxaparin/Lovenox 40 mg SQ daily (WT < 150 kg, CrCl > 30 mL/min) *Enoxaparin/Lovenox 30 mg SQ daily (WT < 150 kg, CrCl > 10-29 mL/min) *Enoxaparin/Lovenox 30 mg SQ BID (WT < 150 kg, CrCl > 30 mL/min) AND *Sequential Compression Device (SCD) Assessment and Plan Plan R LE bypass Discussed again risks and benefits with patient and family. They agree to proceed. To OR. Discharge Planning 3-4 days [phone] Leonard Rebolledo MD Aug 22, 2017 07:28
--- NOTE | 2017-08-22 09:31 | HHI.PR ---
cc: Leonard Rebolledo MD Immediate Post Op Note Procedure Date: Aug 22, 2017 Pre Op Diagnosis: R LE ischemia, PAD Post Op Diagnosis: R LE ischemia, PAD Surgeon: Leonard Rebolledo Screen Printing Paster(s): none Procedure: R SFA - PT bypass with 6mm Artegraft Findings: biphasic PT at end of case, graft dependent Complications: none Specimen(s) removed: none Estimated blood loss: 150mL Anesthesia: General Drains: None Fluids: 1500mL IVF Urinary Output (mLs): 350 Patient to: PACU Patient Condition: Good Implant/Devices: SEE IMPLANT LOG (if applicable) Date/Time of Procedure: SEE SURGICAL CARE RECORD Leonard Rebolledo MD Aug 22, 2017 09:31
[2017-08-22] MEDS ORDERED: PILL SPLITTER OTHER PRN (09:45)
[2017-08-22] MEDS ORDERED: BISACODYL 10 MG SUPP RECTAL PRN (09:45)
[2017-08-22] MEDS ORDERED: LACTULOSE SYRUP 20 GM/30 ML CUP PO PRN (09:45)
[2017-08-22] MEDS ORDERED: MAGNESIUM HYDROXIDE SUSP 30 ML CUP PO PRN (09:45)
[2017-08-22] MEDS ORDERED: SENNOSIDES 8.6 MG TAB PO PRN (09:45)
[2017-08-22] MEDS ORDERED: MIDAZOLAM HCL 2 MG/2 ML VIAL ONE (10:00)
[2017-08-22] MEDS ORDERED: DO NOT ADM ANY ANTICOAGULANT DRUGS PRN (10:00)
[2017-08-22] MEDS ORDERED: MORPHINE SULFATE 4 MG/ML INJ ONE (10:01)
[2017-08-22] MEDS ORDERED: *morphine SULFATE 8 MG/ML PERIprocedure ONLY ONE ×2 (10:01→10:12)
[2017-08-22] MEDS ORDERED: HYDROmorphone HCL PF 0.5 MG/0.5 ML SYRINGE ONE ×3 (10:34→13:04)
[2017-08-22] MEDS ORDERED: PHENYLEPH/NS 1000 MCG/10 ML SYR IV ONE (12:00)
[2017-08-22] MEDS ORDERED: PROPOFOL 200 MG/20 ML AMP IV ONE (12:00)
[2017-08-22] MEDS ORDERED: NEOSTIGMINE 5 MG/5 ML SYRINGE IV PUSH ONE (12:00)
[2017-08-22] MEDS ORDERED: ONDANSETRON HCL 4 MG/2 ML VIAL IV PUSH ONE (12:00)
[2017-08-22] MEDS ORDERED: SODIUM CHLORID 0.9% 500 ML INJ 500 ML IV ONE (12:00)
[2017-08-22] MEDS ORDERED: NORMOSOL R INJ 1,000 ML IV ONE (12:00)
[2017-08-22] MEDS ORDERED: ROCURONIUM INJ 50 MG/5 ML SYRINGE IV PUSH ONE (12:00)
[2017-08-22] MEDS ORDERED: ePHEDrine/NS 25 MG/5 ML SYRINGE IV ONE (12:00)
[2017-08-22] MEDS ORDERED: LIDOCAINE HCL 1% PF 5 ML SYRINGE OTHER ONE (12:00)
[2017-08-22] MEDS ORDERED: GLYCOPYRROLATE 1 MG/5 ML SYRINGE IV PUSH ONE (12:00)
[2017-08-22] MEDS ORDERED: ONDANSETRON HCL 4 MG/2 ML VIAL ONE (15:37)
[2017-08-22 18:05] VITALS: BP 98/58; PULSE 70; PULSE 72; RESP 20; TEMP 97.9; O2SAT 99
--- NOTE | 2017-08-22 18:16 | MP ---
cc: Leonard Rebolledo MD DATE OF OPERATION: 08/22/2017 PREOPERATIVE DIAGNOSIS: Right lower extremity limb threatening claudication with early rest pain. POSTOPERATIVE DIAGNOSIS: Right lower extremity limb threatening claudication with early rest pain. PROCEDURE PERFORMED: Right SFA to posterior tibial artery bypass with Artegraft. ATTENDING SURGEON: Leonard Rebolledo MD ANESTHESIA: General. INDICATIONS FOR PROCEDURE: Mr. Dave is a 61-year-old gentleman with right lower extremity claudication and early rest pain. He has no autogenous conduit and an angiogram showed he had a popliteal artery occlusion. He was taken to the operating room for a bypass. DESCRIPTION OF PROCEDURE: Informed consent was obtained from the patient, he was taken to the operating room and placed supine on the operating table. Appropriate timeout was taken to ensure the patient's identity, operative site and planned procedure. The administration of 2 grams of Ancef was initiated prior to skin incision and will be discontinued after single preoperative dose. Everyone in the room agreed with the timeout and we proceeded. He was prepped from the nipples to his toes. An incision was made in the patient's mid-thigh on the right hand side, carried down through subcutaneous tissue with electrocautery. The muscle was divided and the SFA was identified. It was noted to be pulsatile and normal in character. It was encircled with a vessel loop. A second incision was made on the medial aspect of the lower leg, carried down through subcutaneous tissue with electrocautery. The posterior tibial artery was identified. It was noted to be quite diminutive and was dissected free for several centimeters. A tunnel was then created between these two. The patient was systemically heparinized with 6000 units of IV heparin and ACT was confirmed to be greater than 250. Proximal and distal control of the SFA were obtained with profunda clamps. Artegraft was brought up onto the field, flushed in the standard way. An incision was made in the SFA with an 11 blade, extended with Eagan scissors. The Artegraft was spatulated and sewn end-to-side to the SFA with running 5-0 Prolene suture. At the completion, it was flushed and noted to be hemostatic. The clamps were released. A clamp was placed on the Artegraft and the graft was noted to be pulsatile. It was marked for orientation and passed through the tunnel in an anatomic location. Proximal and distal control of the posterior tibial artery was obtained with Reggie bulldog clamps and a longitudinal arteriotomy was made with an 11 blade and extended with Eagan scissors. The Artegraft was cut to the appropriate length, spatulated and sewn end-to-side with running 6-0 Prolene suture. At the completion, it was flushed and noted to be hemostatic. There was a nice Doppler signal in the foot that was graft dependent. The wounds were made hemostatic and closed with 2-0 Polysorb, 3-0 Polysorb and 4-0 Monocryl. The sponge and needle counts were correct at the end of the case. I was present, scrubbed, and performed the entire procedure. MD CASSANDRA Abreu/CHRISTINE , 05:53 PM , 06:14 PM
[2017-08-22 19:00] VITALS: BP 89/53; PULSE 60; PULSE 71; RESP 20; TEMP 98.1; O2SAT 99
[2017-08-22 20:00] VITALS: PULSE 68
[2017-08-22] MEDS: FAMOTIDINE 20 MG TAB PO SCH (20:13)
[2017-08-22] MEDS: DOCUSATE SODIUM 50 MG/SENNA 8.6 MG TAB PO SCH (20:13)
[2017-08-22 21:00] VITALS: PULSE 64
[2017-08-22 22:00] VITALS: PULSE 66
[2017-08-22 23:00] VITALS: BP 123/63; PULSE 63; PULSE 64; RESP 16; TEMP 97.6; O2SAT 99
[2017-08-23] VITALS (23 sets, daily range): BP systolic 111–132; BP diastolic 53–64; PULSE 58–83; RESP 14–20; TEMP 98–99.1; O2SAT 93–98
[2017-08-23 04:27] LABS: HEMATOCRIT 34.2 % (39.0-51.0); HEMOGLOBIN 11.7 GM/DL (13.0-17.0); MEAN CORPUSCULAR HEMOGLOBIN 29.4 PG (27.0-34.0); MEAN CORPUSCULAR HGB CONC 34.2 % (32.0-36.0); MEAN PLATELET VOLUME 7.8 FL (7.0-11.0); PLATELET COUNT 257 TH/MM3 (150-450); RED BLOOD COUNT 3.97 MIL/MM3 (4.50-5.90); RED CELL DISTRIBUTION WIDTH 13.5 % (11.6-17.2); WHITE BLOOD COUNT 10.3 TH/MM3 (4.0-11.0)
[2017-08-23 04:52] LABS: BICARBONATE 30.3 MEQ/L (21.0-32.0); CALCIUM 8.1 MG/DL (8.5-10.1); CREATININE 0.92 MG/DL (0.60-1.30)
[2017-08-23] MEDS: HYDROmorphone HCL 2 MG TAB PO PRN ×2 (05:47→14:29)
--- NOTE | 2017-08-23 07:42 | PD.VS.PN ---
Subjective POD #: 1 Procedure(s): R SFA-PT bypass Subjective/Hospital Course pain controlled notes that toes feel better today than previously Objective Vitals/I&O Date Time Temp Pulse Resp B/P (MAP) Pulse Ox O2 Delivery O2 Flow Rate FiO2 08/23/17 06:00 68 08/23/17 05:00 66 08/23/17 04:00 66 08/23/17 03:00 65 08/23/17 03:00 98.2 68 16 118/59 (78) 96 08/23/17 02:00 64 08/23/17 01:00 62 08/23/17 00:00 62 08/22/17 23:00 63 08/22/17 23:00 97.6 64 16 123/63 (83) 99 08/22/17 22:00 66 08/22/17 21:00 64 08/22/17 20:00 68 08/22/17 19:00 60 08/22/17 19:00 98.1 71 20 89/53 (65) 99 08/22/17 18:05 97.9 70 20 98/58 (71) 99 08/22/17 18:05 72 08/22/17 17:45 65 16 99/64 (76) 100 Nasal Cannula 2 08/22/17 17:00 59 16 96/61 (73) 100 Nasal Cannula 2 08/22/17 16:00 65 16 102/68 (79) 100 Nasal Cannula 2 08/22/17 15:00 64 16 105/65 (78) 97 Nasal Cannula 2 08/22/17 14:00 56 16 99/57 (71) 99 Nasal Cannula 2 08/22/17 13:00 66 16 107/69 (82) 99 Nasal Cannula 2 08/22/17 12:00 63 16 106/69 (81) 99 Nasal Cannula 2 08/22/17 11:00 58 16 108/66 (80) 100 Nasal Cannula 2 08/22/17 10:45 62 16 113/69 (84) 100 Nasal Cannula 2 08/22/17 10:30 60 16 109/65 (80) 100 Nasal Cannula 2 08/22/17 10:15 60 16 98/57 (71) 100 Nasal Cannula 2 08/22/17 10:00 61 16 105/58 (74) 100 Nasal Cannula 2 08/22/17 09:51 97.6 61 16 96/54 (68) 100 Nasal Cannula 2 08/23/17 08/23/17 08/23/17 07:00 15:00 23:00 Intake Total 720 ml Output Total 775 ml Balance -55 ml Exam: incisions c/d/i strong PT signal at ankle Laboratory Laboratory Tests Test 08/23/17 04:09 White Blood Count 10.3 Red Blood Count 3.97 Hemoglobin 11.7 Hematocrit 34.2 Mean Corpuscular Volume 86.0 Mean Corpuscular Hemoglobin 29.4 Mean Corpuscular Hemoglobin Concent 34.2 Red Cell Distribution Width 13.5 Platelet Count 257 Mean Platelet Volume 7.8 Blood Urea Nitrogen 13 Creatinine 0.92 Random Glucose 106 Calcium Level 8.1 Sodium Level 138 Potassium Level 3.7 Chloride Level 101 Carbon Dioxide Level 30.3 Anion Gap 7 Estimat Glomerular Filtration Rate 84 Assessment and Plan Plan POD#1 s/p R SFA-PT; strong R PT signals 1. D/C reid and watch UOP 2. Normalize 3. OOB TC/PT Discharge Planning 2-3 days : [phone] Leonard Rebolledo MD Aug 23, 2017 07:42
[2017-08-23] MEDS ORDERED: NON-FORMULARY DRUG (Lisinopril-Hctz 1 TAB) PO SCH (09:00)
[2017-08-23] MEDS: HYDROCHLOROTHIAZIDE 25 MG TAB PO SCH (09:14)
[2017-08-23] MEDS: ATORVASTATIN 20 MG TAB PO SCH (09:15)
[2017-08-23] MEDS: CLOPIDOGREL 75 MG TAB PO SCH (09:15)
[2017-08-23] MEDS: METOPROLOL TARTRATE 100 MG TAB PO SCH (09:15)
[2017-08-23] MEDS: FAMOTIDINE 20 MG TAB PO SCH ×2 (09:15→21:50)
[2017-08-23] MEDS: LISINOPRIL 20 MG TAB PO SCH (09:15)
[2017-08-23] MEDS: DOCUSATE SODIUM 50 MG/SENNA 8.6 MG TAB PO SCH ×2 (09:15→21:50)
[2017-08-23] MEDS: ASPIRIN 81 MG CHEW TAB PO SCH (09:15)
[2017-08-23] MEDS: ENOXAPARIN SODIUM 40 MG/0.4 ML SYRINGE SQ SCH (09:16)
--- NOTE | 2017-08-23 15:45 | EKG ---
Date Performed: 08/22/2017 Time Performed: 16:01:40 PTAGE: 61 years EKG: Sinus rhythm NORMAL ECG Since the PREVIOUS TRACING , no significant change noted PREVIOUS TRACIN08/14/2017 11.26 DOCTOR: Kandis Pandey Interpretating Date/Time 08/23/2017 15:43:57
[2017-08-24] VITALS (13 sets, daily range): BP systolic 100–138; BP diastolic 54–70; PULSE 63–84; RESP 16–18; TEMP 97.1–99.4; O2SAT 93–97
[2017-08-24] MEDS: FAMOTIDINE 20 MG TAB PO SCH ×2 (08:28→21:44)
[2017-08-24] MEDS: METOPROLOL TARTRATE 100 MG TAB PO SCH (08:28)
[2017-08-24] MEDS: ATORVASTATIN 20 MG TAB PO SCH (08:29)
[2017-08-24] MEDS: CLOPIDOGREL 75 MG TAB PO SCH (08:29)
[2017-08-24] MEDS: ASPIRIN 81 MG CHEW TAB PO SCH (08:30)
[2017-08-24] MEDS: HYDROCHLOROTHIAZIDE 25 MG TAB PO SCH (08:30)
[2017-08-24] MEDS: LISINOPRIL 20 MG TAB PO SCH (08:30)
[2017-08-24] MEDS: DOCUSATE SODIUM 50 MG/SENNA 8.6 MG TAB PO SCH ×2 (08:30→21:45)
[2017-08-24] MEDS: ENOXAPARIN SODIUM 40 MG/0.4 ML SYRINGE SQ SCH (08:31)
--- NOTE | 2017-08-24 09:36 | PD.VS.PN ---
Subjective POD #: 2 Procedure(s): R SFA-PT bypass Subjective/Hospital Course c/o pain in incisions and unsteadiness on feet ricardo po + flatus and + UOP since Michaud out Objective Vitals/I&O Date Time Temp Pulse Resp B/P (MAP) Pulse Ox O2 Delivery O2 Flow Rate FiO2 08/24/17 09:00 79 08/24/17 08:00 84 08/24/17 07:00 98.1 81 18 138/70 (92) 95 08/24/17 07:00 80 08/24/17 06:35 18 08/24/17 06:00 78 08/24/17 05:00 78 08/24/17 04:00 98.2 80 16 128/63 (84) 95 08/24/17 04:00 80 08/24/17 03:00 76 08/24/17 02:00 74 08/24/17 01:00 76 08/24/17 00:00 99.4 74 18 118/55 (76) 93 08/24/17 00:00 77 08/23/17 23:00 74 08/23/17 22:00 74 08/23/17 21:00 74 08/23/17 20:00 99.1 77 20 132/61 (84) 95 08/23/17 20:00 70 08/23/17 19:00 70 08/23/17 18:00 72 08/23/17 17:00 72 08/23/17 16:00 79 08/23/17 15:00 67 08/23/17 15:00 98.0 66 17 131/64 (86) 96 08/23/17 14:00 65 08/23/17 13:00 64 08/23/17 12:00 60 08/23/17 11:00 58 08/23/17 11:00 98.3 62 16 111/57 (75) 98 08/23/17 10:00 60 08/24/17 08/24/17 08/24/17 07:00 15:00 23:00 Intake Total 240 ml Output Total 1600 ml Balance -1360 ml Exam: resting comfortably, no distress incisions ok strong PT signal in foot Assessment and Plan Plan POD#2 s/p R SFA-PT; strong R PT signals 1. pain control 2. PT 3. D/C planning Discharge Planning 2-3 days : [phone] Leonard Rebolledo MD Aug 24, 2017 09:36
[2017-08-25] VITALS (7 sets, daily range): BP systolic 109–130; BP diastolic 56–71; PULSE 60–82; RESP 16–18; TEMP 97.8–98.5; O2SAT 92–99
--- NOTE | 2017-08-25 08:55 | PD.VS.PN ---
Subjective POD #: 3 Procedure(s): R SFA-PT bypass Subjective/Hospital Course pain with ambulation but when at rest foot feels normal including 2 previously numb toes Objective Vitals/I&O Date Time Temp Pulse Resp B/P (MAP) Pulse Ox O2 Delivery O2 Flow Rate FiO2 08/25/17 07:18 98.1 82 18 109/56 (73) 97 08/25/17 05:00 98.5 77 16 115/64 (81) 97 08/25/17 00:00 98.2 75 16 112/71 (85) 97 08/24/17 20:00 98.2 72 16 114/59 (77) 97 08/24/17 15:01 98.0 68 16 109/56 (73) 97 08/24/17 11:00 97.1 63 18 100/54 (69) 96 08/24/17 09:00 79 08/25/17 08/25/17 08/25/17 07:00 15:00 23:00 Intake Total 480 ml Output Total 925 ml Balance -445 ml Exam: resting comfortably strong PT signal incisions ok calf soft Assessment and Plan Plan POD#3 s/p R SFA-PT; strong R PT signals 1. pain control 2. PT 3. D/C planning with walker 4. D/C tele Discharge Planning Saturday (POD#4) : [phone] Leonard Rebolledo MD Aug 25, 2017 08:55
[2017-08-25] MEDS: FAMOTIDINE 20 MG TAB PO SCH ×2 (09:19→20:56)
[2017-08-25] MEDS: HYDROCHLOROTHIAZIDE 25 MG TAB PO SCH (09:19)
[2017-08-25] MEDS: DOCUSATE SODIUM 50 MG/SENNA 8.6 MG TAB PO SCH ×2 (09:20→20:56)
[2017-08-25] MEDS: ATORVASTATIN 20 MG TAB PO SCH (09:20)
[2017-08-25] MEDS: CLOPIDOGREL 75 MG TAB PO SCH (09:20)
[2017-08-25] MEDS: METOPROLOL TARTRATE 100 MG TAB PO SCH (09:20)
[2017-08-25] MEDS: LISINOPRIL 20 MG TAB PO SCH (09:20)
[2017-08-25] MEDS: ENOXAPARIN SODIUM 40 MG/0.4 ML SYRINGE SQ SCH (09:20)
[2017-08-25] MEDS: ASPIRIN 81 MG CHEW TAB PO SCH (09:20)
[2017-08-26 03:00] VITALS: BP 123/65; PULSE 74; RESP 16; TEMP 98.5; O2SAT 96
[2017-08-26 08:00] VITALS: BP 132/70; PULSE 81; RESP 14; TEMP 98.3; O2SAT 98
--- NOTE | 2017-08-26 08:33 | PD.VS.PN ---
Subjective POD #: 4 Procedure(s): R SFA-PT bypass Subjective/Hospital Course S/P R LE revascularization POD 4 LE warm w/ motor intact Pt denied claudication or rest pain R LE incisions intact S/NT Pt c/o R LE discomfort with ambulation (foot) + Flatulence Abdomen S/NT Objective Vitals/I&O Date Time Temp Pulse Resp B/P (MAP) Pulse Ox O2 Delivery O2 Flow Rate FiO2 08/26/17 03:00 98.5 74 16 123/65 (84) 96 08/25/17 23:00 98.5 80 16 130/64 (86) 92 08/25/17 19:00 97.8 72 16 123/56 (78) 94 08/25/17 15:11 98.4 66 16 111/56 (74) 99 08/25/17 11:46 98.3 60 16 126/63 (84) 99 18 18 18 07:00 15:00 23:00 Intake Total 400 ml Output Total 800 ml Balance -400 ml Exam: GENERAL: A&OX3,NAD,GCS 15 SKIN: LE Warm and dry/motor intact R LE incisions intact with surgical glue closure/No R/D/S/O NECK: Supple, trachea midline. No JVD or lymphadenopathy. CARDIOVASCULAR: Regular rate and rhythm without murmurs, gallops, or rubs. RESPIRATORY: Breath sounds equal bilaterally. No accessory muscle use. GASTROINTESTINAL: Abdomen soft, non-tender, nondistended. + BS MUSCULOSKELETAL: No cyanosis/Mild R foot non pitting edema. R PT Biphasic signal heard via Doppler L PT/DP multiphasic signals heard via Doppler Assessment and Plan Plan POD#4 S/p R SFA-PT Pt continues w/ strong R PT signals heard via Doppler Pt c/o R LE discomfort with ambulation Plan Pt clear for D/C w/ a walker Discussed post operative care and management w/ pt and spouse Pt to RTC in 2-3 W with a surveillance KIM Ina Tompkins NP [facility] [phone] Discharge Planning TODAY w/ a walker (POD#4) : [phone] Ina Tompkins Aug 26, 2017 08:33
[2017-08-26] MEDS ORDERED: OXYC1CAP PO (08:35)
[2017-08-26] MEDS ORDERED: WALKER GLIDE WH1 MI1 (08:40)
--- NOTE | 2017-08-26 09:00 | PD.VS.DC ---
Discharge Summary Admission Date: Aug 22, 2017 at 05:55 Discharge Date: Aug 26, 2017 Admission Diagnosis: (1) PAD (peripheral artery disease) Discharge Diagnosis: (1) Right lower extremity distal bypass (2) PAD (peripheral artery disease) ICD Codes: I73.9 - Peripheral vascular disease, unspecified Brief History from admission 61 yo male with R LE disabling claudication and nighttime pain. No tissue loss and no motor dysfunction. Prior R groin reconstruction and iliac atherectomy with interval relief that has since gone away. Presents for R SFA-PT bypass. No autogenous conduit. Procedure(s): R SFA-PT bypass Significant Findings GENERAL: A&OX3,NAD,GCS 15 SKIN: LE Warm and dry/motor intact R LE incisions intact with surgical glue closure/No R/D/S/O NECK: Supple, trachea midline. No JVD or lymphadenopathy. CARDIOVASCULAR: Regular rate and rhythm without murmurs, gallops, or rubs. RESPIRATORY: Breath sounds equal bilaterally. No accessory muscle use. GASTROINTESTINAL: Abdomen soft, non-tender, nondistended. + BS MUSCULOSKELETAL: No cyanosis/Mild R foot non pitting edema. R PT Biphasic signal heard via Doppler L PT/DP multiphasic signals heard via Doppler Hospital Course: 61 yo male with a PMH of R groin reconstruction and iliac atherectomy and worsening R LE disabling claudication and nighttime pain. Pt w/o tissue loss and no motor dysfunction. Pt presented for R SFA-PT bypass. No autogenous conduit. POD 1 pain controlled notes that toes feel better today than previously POD 2 c/o pain in incisions and unsteadiness on feet ricardo po + flatus and + UOP since Michaud out POD 3 pain with ambulation but when at rest foot feels normal including 2 previously numb toes POD 4 LE warm w/ motor intact Pt denied claudication or rest pain R LE incisions intact S/NT Pt c/o R LE discomfort with ambulation (foot) + Flatulence Abdomen S/NT Pt clear for D/C with a walker for continued support w/ ambulation As per recommended guidelines- Checked E forcse before providing a narcotic post operative pain medication - Pt w/o any recent narcotic pain medications Prescribed 3 day supply for post operative acute pain Pt to RTC in 2-3W w/ a surveillance KIM Discussed post operative care and management w/ pt and spouse Allergies Coded Allergies Type Severity Reaction Last Updated Verified No Known Allergies Allergy Unknown 08/22/17 Yes 08/24/17 08/24/17 08/25/17 08/25/17 08/26/17 08/26/17 05:59 17:59 05:59 17:59 05:59 17:59 Intake Total 240 ml 1560 ml 1680 ml 400 ml Output Total 1600 ml 1100 ml 1925 ml 800 ml Balance -1360 ml 460 ml -245 ml -400 ml Intake Oral 240 ml 1560 ml 1680 ml 400 ml Output Urine Total 1600 ml 1100 ml 1925 ml 800 ml Orders Procedure Category Date Status Time ^ Other Nursing Orders ABNER 08/25/17 In Process 08:55 Attending Discharge DISCHARGE 08/26/17 Transmitted Order Vital Signs Date Time Temp Pulse Resp B/P (MAP) Pulse Ox O2 Delivery O2 Flow Rate FiO2 08/26/17 03:00 98.5 74 16 123/65 (84) 96 08/25/17 23:00 98.5 80 16 130/64 (86) 92 08/25/17 19:00 97.8 72 16 123/56 (78) 94 08/25/17 15:11 98.4 66 16 111/56 (74) 99 08/25/17 11:46 98.3 60 16 126/63 (84) 99 08/25/17 07:18 98.1 82 18 109/56 (73) 97 08/25/17 05:00 98.5 77 16 115/64 (81) 97 08/25/17 00:00 98.2 75 16 112/71 (85) 97 08/24/17 20:00 98.2 72 16 114/59 (77) 97 08/24/17 15:01 98.0 68 16 109/56 (73) 97 08/24/17 11:00 97.1 63 18 100/54 (69) 96 08/24/17 09:00 79 08/24/17 08:00 84 08/24/17 07:00 98.1 81 18 138/70 (92) 95 08/24/17 07:00 80 08/24/17 06:35 18 6/9/18 06:00 78 08/24/17 05:00 78 08/24/17 04:00 98.2 80 16 128/63 (84) 95 08/24/17 04:00 80 08/24/17 03:00 76 08/24/17 02:00 74 08/24/17 01:00 76 08/24/17 00:00 99.4 74 18 118/55 (76) 93 08/24/17 00:00 77 08/23/17 23:00 74 08/23/17 22:00 74 08/23/17 21:00 74 08/23/17 20:00 99.1 77 20 132/61 (84) 95 08/23/17 20:00 70 08/23/17 19:00 70 08/23/17 18:00 72 08/23/17 17:00 72 08/23/17 16:00 79 08/23/17 15:00 67 08/23/17 15:00 98.0 66 17 131/64 (86) 96 08/23/17 14:00 65 08/23/17 13:00 64 08/23/17 12:00 60 08/23/17 11:00 58 08/23/17 11:00 98.3 62 16 111/57 (75) 98 08/23/17 10:00 60 08/23/17 09:00 83 Discharge Condition: Good Discharge Disposition: Discharge Home Discharge Instructions: DIET You may resume your daily heart healthy diet ACTIVITY Activities as tolerated Recommend a daily walking regimen You may shower then pat dry your incisions NO tub baths or swimming until your incisions are fully healed MEDICATIONS You may resume your daily home medications You were prescribed a narcotic pain medication which may cause constipation- Take with an over the counter stool softener You were prescribed a narcotic pain medication which may cause drowsiness- No driving while taking this medication WOUND CARE Leave your incisions open to air Do not apply any creams or ointments to your incisions as it may loosen the surgical glue Call the office to report any increased redness, drainage or swelling Any questions or concerns: Call [facility] at [facility] [phone] Ina Tompkins Aug 26, 2017 09:00
[2017-08-26] MEDS: METOPROLOL TARTRATE 100 MG TAB PO SCH (09:50)
[2017-08-26] MEDS: ENOXAPARIN SODIUM 40 MG/0.4 ML SYRINGE SQ SCH (09:51)
[2017-08-26] MEDS: FAMOTIDINE 20 MG TAB PO SCH (09:51)
[2017-08-26] MEDS: ATORVASTATIN 20 MG TAB PO SCH (09:51)
[2017-08-26] MEDS: ASPIRIN 81 MG CHEW TAB PO SCH (09:51)
[2017-08-26] MEDS: HYDROCHLOROTHIAZIDE 25 MG TAB PO SCH (09:51)
[2017-08-26] MEDS: DOCUSATE SODIUM 50 MG/SENNA 8.6 MG TAB PO SCH (09:52)
[2017-08-26] MEDS: LISINOPRIL 20 MG TAB PO SCH (09:52)
[2017-08-26] MEDS: CLOPIDOGREL 75 MG TAB PO SCH (09:52)
== END 2017-08-26 12:44 | disposition home or self-care (01) | DRG 254 ==
LOC: HSDI 05:55 → HCPC 17:45
PROVIDERS: ADMIT Surgery; ATTEND Surgery
PROC: 041K0KN Bypass Right Femoral Artery to Posterior Tibial Artery with Nonautologous Tissue Substitute, Open Approach (ICD-10-PCS; principal; 2017-08-22 07:31)
DX: I70.221 Atherosclerosis of native arteries of extremities with rest pain, right leg (principal); I10 Essential (primary) hypertension; I25.10 Atherosclerotic heart disease of native coronary artery without angina pectoris; K21.9 Gastro-esophageal reflux disease without esophagitis; Z96.649 Presence of unspecified artificial hip joint; Z87.891 Personal history of nicotine dependence
CPT/HCPCS: 80048; 85027; 86850; 86900; 86901; 93005; J0131; J0690; J1170; J1644; J1650; J2250; J2270; J2370; J2405; J2710; J2720; J3010; J7040; J7120

== ENCOUNTER 2017-09-23 08:29 | Inpatient (IN) ==
[2017-09-23] MEDS ORDERED: Heparin 10,000 UNITS/10 ML Vial (for IV use) ONE (09:45)
[2017-09-23 09:50] LABS: Baso # (Auto) 0.1 th/mm3 (0.0-0.2); Baso % (Auto) 0.6 % (0.0-2.0); Eos # (Auto) 0.1 th/mm3 (0.0-0.4); Eos % (Auto) 1.3 % (0.0-4.0); Hematocrit 41.6 % (39.0-51.0); Hemoglobin 13.8 gm/dL (13.0-17.0); Lymph # (Auto) 1.7 th/mm3 (1.0-4.8); Lymph % (Auto) 17.6 % (9.0-44.0); Mean Corpuscular HGB Conc 33.1 % (32.0-36.0); Mean Corpuscular Hemoglobin 27.6 pg (27.0-34.0); Mean Corpuscular Volume 83.4 fL (80.0-100.0); Mean Platelet Volume 7.2 fL (7.0-11.0); Mono # (Auto) 0.7 th/mm3 (0.0-0.9); Mono % (Auto) 6.9 % (0.0-8.0); Neut % (Auto) 73.6 % (16.0-70.0); Platelet Count 426 th/mm3 (150-450); Red Blood Count 4.99 mil/mm3 (4.50-5.90); Red Cell Distribution Width 14.5 % (11.6-17.2); White Blood Count 9.5 th/mm3 (4.0-11.0)
[2017-09-23 09:58] LABS: Prothrombin Time 10.3 sec (9.8-11.6)
--- NOTE | 2017-09-23 10:03 | P.HPVS ---
History of Present Illness Chief Complaint: R LE rest pain History of Present Illness: 62 yo male with PAD s/p R groin reconstruction, R LE bypass, with recurrent rest pain. No tissue loss. Presents for angiogram in advance of R LE bypass scheduled for Sunday 09/24 - Inpatient Certification If this patient has been admitted as an Inpatient: I certify that the inpatient services were ordered in accordance with Medicare regulations governing the order. This includes certification that hospital inpatient services are reasonable and necessary and in the case of services not specified as inpatient-only under 42 CFR 419.22(n), that they are appropriately provided as inpatient services in accordance to with the 2-midnight benchmark under 43 CFR 412.3(e) Estimated Total Length of Stay (Days): 7 Plans for Post Hospital Care: Not yet determined PMFSH - History History Provided By: Patient - Medical History Medical History: Medical History (Last Updated 09/23/17 @ 09:59 by Leonard Rebolledo MD) History of femoral angiogram (Acute) Afib Hemorrhage following tonsillectomy and adenoidectomy High cholesterol Hypertension Peripheral arterial disease Peripheral vascular disease Wears glasses - Surgical History Surgical History: Surgical History (Last Reviewed 09/23/17 @ 09:59 by Leonard Rebolledo MD) H/O cardiac radiofrequency ablation H/O inguinal hernia repair History of total right hip arthroplasty - Tobacco History Second Hand Smoke Exposure: No Smoking Status: Former smoker Tobacco Type: Cigarettes - Alcohol History How Often Do You Have a Drink Containing Alcohol: Never - Substance Use History Substance History: No History of Abuse - Travel History Recent Travel in the [place] Within the Last 8 Weeks: No Recent Travel Out of the Country Within the Last 8 Weeks: No Medications and Allergies Allergies Allergy/AdvReac Type Severity Reaction Status Date / Time No Known Allergies Allergy Unverified 09/19/17 12:26 Home Medications Medication Instructions Recorded Confirmed Type atorvastatin 20 mg PO DAILY 09/19/17 09/23/17 History clopidogrel 75 mg PO DAILY 09/19/17 09/23/17 History lisinopril-hydrochlorothiazide 1 tab PO DAILY 09/19/17 09/23/17 History metoprolol succinate 100 mg PO DAILY 09/19/17 09/23/17 History omeprazole magnesium [Prilosec OTC] 20 mg PO DAILY PRN 09/19/17 09/23/17 History Physical Exam Vital Signs / I&O: Vital Signs 09/23/17 09:39 Temperature 98.9 F Pulse Rate 73 Respiratory Rate 18 Blood Pressure 117/69 Intake & Output 09/22/17 09/23/17 09/23/17 18:59 06:59 18:59 Weight 85 kg Other: Weight On Admission 85 kg Neuro: alert, oriented HEENT: NC/AT, anicteric sclera Neck: no JVD Heart: reg rate, no M Lungs: clear B Vascular: R LE incisions healed. no palpable R LE pulses Laboratory Results - last 24 hr 09/23/17 09/23/17 09:24 09:24 WBC 9.5 RBC 4.99 Hgb 13.8 Hct 41.6 MCV 83.4 MCH 27.6 MCHC 33.1 RDW 14.5 Plt Count 426 MPV 7.2 Neut % (Auto) 73.6 H Lymph % (Auto) 17.6 Hawkins % (Auto) 6.9 Eos % (Auto) 1.3 Baso % (Auto) 0.6 Neut # (Auto) 7.0 Lymph # (Auto) 1.7 Hawkins # (Auto) 0.7 Eos # (Auto) 0.1 Baso # (Auto) 0.1 WBC Differential . Differential Comment Auto diff final PT 10.3 INR 1.0 will make in OR Caprini VTE Risk Assessment Caprini VTE Risk Assessment: Moderate/High Risk (score >= 2) Caprini Risk Assessment Model: Point Value = 1 Point Value = 2 Point Value = 3 Point Value = 5 Age 41-60 Minor surgery BMI > 25 kg/m2 Swollen legs Varicose veins or History of unexplained or recurrent spontaneous Oral contraceptives or hormone replacement Sepsis (< 1 month) Serious lung disease, including pneumonia (< 1 month) Abnormal pulmonary function Acute myocardial infarction Congestive heart failure (< 1 month) History of inflammatory bowel disease Medical patient at bed rest Age 61-74 Arthroscopic surgery Major open surgery (> 45 min) Laparoscopic surgery (> 45 min) Malignancy Confined to bed (> 72 hours) Immobilizing plaster cast Central venous access Age >= 75 History of VTE Family history of VTE Factor V Leiden Prothrombin [id number] Lupus anticoagulant Anticardiolipin antibodies Elevated serum homocysteine Heparin-induced thrombocytopenia Other congenital or acquired thrombophilia Stroke (< 1 month) Elective arthroplasty Hip, pelvis, or leg fracture Acute spinal cord injury (< 1 month) Prophylaxis Regimen: Total Risk Factor Score Risk Level Prophylaxis Regimen 0-1 Low Early ambulation 2 Moderate Order ONE of the following: *Sequential Compression Device (SCD) *Heparin 5000 units SQ BID 3-4 Higher Order ONE of the following medications: *Heparin 5000 units SQ TID *Enoxaparin/Lovenox 40 mg SQ daily (WT < 150 kg, CrCl > 30 mL/min) *Enoxaparin/Lovenox 30 mg SQ daily (WT < 150 kg, CrCl > 10-29 mL/min) *Enoxaparin/Lovenox 30 mg SQ BID (WT < 150 kg, CrCl > 30 mL/min) AND/OR *Sequential Compression Device (SCD) 5 or more Highest Order ONE of the following medications: *Heparin 5000 units SQ TID (Preferred with Epidurals) *Enoxaparin/Lovenox 40 mg SQ daily (WT < 150 kg, CrCl > 30 mL/min) *Enoxaparin/Lovenox 30 mg SQ daily (WT < 150 kg, CrCl > 10-29 mL/min) *Enoxaparin/Lovenox 30 mg SQ BID (WT < 150 kg, CrCl > 30 mL/min) AND *Sequential Compression Device (SCD) Assessment and Plan - Plan 1. R LE angiogram today 2. POA 3. R LE bypass tomorrow
[2017-09-23 10:13] LABS: Carbon Dioxide 30.4 meq/L (21.0-32.0)
[2017-09-23] MEDS ORDERED: Chlorhexidine Gluconate 2% 1 Pack (2 Cloths) TOPICAL SCH (11:15)
[2017-09-23] MEDS ORDERED: Metoprolol Tartrate 25 MG Tablet PO SCH (11:15)
[2017-09-23] MEDS: Heparin/NS PF Inj 500 ML ONE ×2 (11:39→16:19)
[2017-09-23] MEDS: Bupivacaine PF 0.5% Inj 30 ML Vial ONE ×2 (11:40→16:19)
[2017-09-23] MEDS ORDERED: Bisacodyl 10 MG Supp RECTAL PRN (11:55)
--- NOTE | 2017-09-23 11:55 | P.BOP ---
Date of procedure: 09/23/17 Procedure: Aortogram w/ R LE angiogram L [employer] Angioseal Implants: none Anesthesia: MAC Surgeon: Leonard Rebolledo MD Estimated blood loss (mL): 10 IV fluids (mL): 400 Pathology: none sent Condition: stable Disposition: PACU
[2017-09-23] MEDS ORDERED: Iohexol 300 MG/ML 50 ML Vial (for Rad Diag) IVCONTRAST ONE (12:00)
[2017-09-23] MEDS ORDERED: Lidocaine PF 1% Inj 5 ML Syringe INFILTRATN ONE (12:00)
[2017-09-23] MEDS ORDERED: Sodium Chlor 0.9% Inj 500 ML IV.SIG SCH (12:00)
[2017-09-23] MEDS ORDERED: Phenylephrine/NS 1000 MCG/10ML Syringe IV.PUSH ONE (12:00)
[2017-09-23] MEDS ORDERED: *morphine SULFATE 4 MG/ML PERIprocedure ONLY ONE (12:16)
[2017-09-23] MEDS: Aspirin 325 MG Tablet PO SCH (16:20)
--- NOTE | 2017-09-23 18:21 | MP ---
cc: Leonard Rebolledo MD DATE OF OPERATION: 09/23/2017 PREOPERATIVE DIAGNOSIS: Right lower extremity rest pain. POSTOPERATIVE DIAGNOSIS: Right lower extremity rest pain. PROCEDURE PERFORMED: Aortogram with right lower extremity angiogram. ATTENDING SURGEON: Leonard Rebolledo MD ANESTHESIA: LMA. INDICATIONS FOR PROCEDURE: Mr. Dave is a 62-year-old gentleman with a failed distal bypass. He was taken to the operating room for angiographic evaluation prior to planned distal bypass. There was no prior catheter-based imaging available for my review since his bypass failed. DESCRIPTION OF PROCEDURE: Informed consent was obtained from the patient and he was taken to the operating room and placed supine on the operating table. Appropriate timeout was taken to ensure the patient's identity, the operative site and planned procedure. The administration of antibiotics was not necessary at this was a clean proceed, without planned implantation of any foreign object. Everyone in the room agreed with the timeout and we proceeded. His bilateral groins were prepped and draped and the left groin was accessed with a 21-gauge micropuncture needle. This was exchanged using Seldinger technique for a micropuncture sheath, through which a 0.035 Glidewire was introduced. The micropuncture sheath was exchanged for a 5-Uzbek sheath and a VCF catheter was placed over the wire and through the sheath and an aortogram and pelvic arteriogram was obtained. The Glidewire was reintroduced and navigated down to the right common femoral artery and the VCF catheter was advanced over this and, with the VCF catheter in the right common femoral artery, a right lower extremity arteriogram was obtained. The wire, catheter and sheath were removed and the groin was closed with an Angio-Seal. There were no complications. I was present and scrubbed and performed the entire procedure. INTERPRETATION OF IMAGES: The patient has a patent terminal aorta and common iliac arteries. There was a calcific ____-like plaque in the proximal right common iliac artery. The external iliac artery and hypogastric artery were patent bilaterally. The right common femoral artery has been replaced and the ilio-profunda bypass is widely patent. The jump graft to the SFA is widely patent. The SFA is patent down to the adductor canal, at which point it occludes. The popliteal artery is occluded and yoana-geniculate collaterals gave rise to both the peroneal and posterior tibial arteries. The posterior tibial artery extends down to the foot. MD CASSANDRA Abreu/ACE , 05:39 PM , 06:19 PM
[2017-09-23] MEDS: Famotidine 20 MG Tablet PO SCH (21:11)
[2017-09-23] MEDS: Senna/Docusate Sodium 8.6/50 MG Tablet PO SCH (21:11)
[2017-09-24 08:02] LABS: Hematocrit 39.8 % (39.0-51.0); Hemoglobin 13.1 gm/dL (13.0-17.0); Mean Corpuscular HGB Conc 32.9 % (32.0-36.0); Mean Corpuscular Hemoglobin 27.8 pg (27.0-34.0); Mean Corpuscular Volume 84.7 fL (80.0-100.0); Mean Platelet Volume 7.5 fL (7.0-11.0); Platelet Count 370 th/mm3 (150-450); Red Cell Distribution Width 14.4 % (11.6-17.2); White Blood Count 9.7 th/mm3 (4.0-11.0)
[2017-09-24] MEDS: Aspirin 325 MG Tablet PO SCH (09:22)
[2017-09-24] MEDS: Famotidine 20 MG Tablet PO SCH ×2 (09:22→23:52)
[2017-09-24] MEDS: Senna/Docusate Sodium 8.6/50 MG Tablet PO SCH ×2 (09:23→23:52)
[2017-09-24] MEDS: Enoxaparin Inj 40 MG/0.4 ML Syringe SQ SCH (11:01)
[2017-09-24] MEDS ORDERED: Phenylephrine/NS 1000 MCG/10ML Syringe IV.PUSH ONE (12:00)
[2017-09-24] MEDS ORDERED: Normosol-R pH 7.4 Inj 3,000 ML IV.CONT ONE (12:00)
[2017-09-24] MEDS ORDERED: Neostigmine Inj 5 MG/5 ML Syringe IV.PUSH ONE (12:00)
[2017-09-24] MEDS ORDERED: Glycopyrrolate Inj 1 MG/5 ML Syringe IV.PUSH ONE (12:00)
[2017-09-24] MEDS ORDERED: Lidocaine PF 1% Inj 5 ML Syringe INFILTRATN ONE (12:00)
[2017-09-24] MEDS ORDERED: Thrombin Topical 20,000 UNIT Spray Kit TOPICAL ONE (15:00)
[2017-09-24] MEDS ORDERED: fentaNYL Citrate Inj 100 MCG/2 ML Ampul ONE ×2 (16:01)
--- NOTE | 2017-09-24 16:14 | P.OP ---
Date of procedure: 09/24/17 Procedure: 1. R SFA-PT bypass with composite reversed R basilic and L cephalic vein 2. Redo bypass Anesthesia: GETA Surgeon: Leonard Rebolledo MD Technician Telecommunication Systems: Jojo Martinez (Felicita Worrell) Estimated blood loss (mL): 300 IV fluids (mL): 2,500 Urine output (mL): 250 Pathology: none sent Operation and Findings: very diseased tibial target + PT signal at end of case 10 Flat CHERIE in R basilic vein harvest site
[2017-09-24] MEDS ORDERED: Naloxone Inj 0.4 MG/ML Vial IV.PUSH PRN (16:15)
[2017-09-24] MEDS ORDERED: *Meperidine Inj 25 MG/ML Vial PERIprocedural Use ONLY ONE (16:42)
[2017-09-24] MEDS ORDERED: *Ondansetron Inj 4 MG/2 ML Vial PERIprocedural Use ONLY ONE (17:10)
[2017-09-24] MEDS ORDERED: *Promethazine Inj 25 MG/ML Vial PERIprocedural use ONLY ONE (17:23)
--- NOTE | 2017-09-24 17:36 | XR ---
EXAM DATE: 09/24/2017 5:25 PM EDT AGE/SEX: 62 years / Male INDICATIONS: Evaluate for central line placement. CLINICAL DATA: This is the patient's initial encounter. Patient reports that signs and symptoms have been present for 1 day and indicates a pain score of Nonresponsive. MEDICAL/SURGICAL HISTORY: Non-responsive. Non-responsive. COMPARISON: [facility] [place] [facility] [place], 08/14/[place]. . FINDINGS: The cardiac silhouette is enlarged in transverse diameter. There is prominence of the central pulmona ry vasculature with indistinct vascular margins compatible with vascular congestion but no evidence o f overt failure. The lungs are hypoinflated. There is stable pleural thickening along the left later al chest wall with multiple old left rib fractures. A right sided internal jugular vein catheter is i n place without pneumothorax with its tip in the superior vena cava. CONCLUSION: Uncomplicated line placement. No evidence of pneumothorax. Electronically signed by: Hollis Daniel MD 09/24/2017 5:35 PM EDT
--- NOTE | 2017-09-24 17:59 | MP ---
cc: Leonard Rebolledo MD, Robert J MD DATE OF OPERATION: 09/24/2017 PREOPERATIVE DIAGNOSIS: Right lower extremity ischemia, failed distal bypass. POSTOPERATIVE DIAGNOSIS: Right lower extremity ischemia, failed distal bypass. PROCEDURE PERFORMED: 1. Right SFA to posterior tibial artery bypass with composite right basilic and the left cephalic vein. 2. Redo bypass. ATTENDING SURGEON: Leonard Rebolledo DUAL RATE DEALER SURGEONS: Jojo Martinez, Thomas Sue, Felicita House. ANESTHESIA: General. INDICATIONS: Mr. Dave is a 62-year-old gentleman with rest pain and diminished ABIs. He has an occluded bypass and is taken to the operating room for redo bypass. DESCRIPTION OF PROCEDURE: Informed consent was obtained from the patient and he was taken to the operating room and placed supine on the operating table. Appropriate timeout was taken to ensure the patient's identity, the operative site and planned procedure. Two grams of Ancef was initiated prior to skin incision and will be discontinued after a single preoperative dose. Everyone in the room agreed with timeout and we proceeded. He was prepped from his chin to his toes, including bilateral upper extremities and bilateral lower extremities circumferentially. His previous thigh incision was reopened with a 10 blade, carried through subcutaneous tissue with electrocautery. The muscle was retracted and the superficial femoral artery was identified. It was noted to have a nice pulse in it. It was circumferentially dissected and encircled with a vessel loop. The distal medial calf wound was then opened and carried down through subcutaneous tissue with electrocautery. The posterior tibial artery was identified distal to the previous distal anastomosis and it was noted to be quite small, but patent and it was dissected free for several centimeters. A tunnel was then created between these two. On the left arm, an incision was made on the anterior aspect, carried down through subcutaneous tissue with electrocautery. The cephalic vein was identified, dissected free from the deltopectoral groove all the way down to the proximal forearm with side branches being ligated with 3-0 silk. The vein was marked for orientation, clamped proximally and distally, transected and then placed in heparinized saline. The distal and proximal ends were oversewn with 3-0 silk and the wound was closed with 2-0 Polysorb, 3-0 Polysorb and 4-0 Monocryl. On the right hand side, an incision was made in the medial upper arm, carried down through subcutaneous tissue with electrocautery. Basilic vein was identified and dissected free from the axillary vein all the way down to the antecubital vein; proximally and distally it was clamped, transected after side branches had been ligated with 3-0 silk and the proximal and distal ends were oversewn with 3-0 silk and a Hemoclip proximally. A 10 flat CHERIE drain was placed through a separate stab wound, secured to the skin with a 2-0 nylon. The wound was closed with 2-0 Polysorb, 3-0 Polysorb and 4-0 Monocryl. Both vein segments were then flushed and noted to be hemostatic. They had been marked for orientation and we sewed the vein segment end to end after spatulating the inflow end of the cephalic and the outflow end of the basilic veins. This venovenostomy was done with a pair of running 6-0 Prolene sutures. At this point, the patient was systemically heparinized ACT was kept greater than 250. Proximal and distal control of the superficial femoral artery was obtained with profunda clamps and a longitudinal arteriotomy was made with an 11 blade, extended with Mazon scissors. The proximal aspect of the basilic vein was spatulated and sewn end to side to the SFA with running 5-0 Prolene suture. At the completion, it was flushed and noted to be hemostatic. The clamps were released. The distal end of the composite vein segment was then clamped. The composite vein conduit was marked for orientation and passed through the tunnel. Proximal and distal posterior tibial arteries were obtained and profunda clamps and longitudinal arteriotomy was made with an 11 blade, extended with Marcus scissors. The vein was cut to appropriate length, spatulated and sewn end-to-side with running 6-0 Prolene suture. At the completion, it was flushed and noted to be hemostatic. There was excellent Doppler signal in the foot and a palpable graft pulse. The wounds were all irrigated and made hemostatic. The heparin was reversed with protamine and the wounds were closed with 2-0 Polysorb, 3-0 Polysorb and 4-0 Monocryl. The sponge and needle counts were correct at the end of the case. I was present and scrubbed and performed the entire procedure. MD JENNA Abreu , 05:30 PM , 05:58 PM
[2017-09-24] MEDS: Morphine Inj 30 MG/30 ML PCA.VIAL PCA PRN (18:08)
[2017-09-25] MEDS ORDERED: Sod Chloride 0.9% Inj 1,000 ML IV.SIG SCH (00:30)
[2017-09-25 04:23] LABS: Hematocrit 24.1 % (39.0-51.0); Hemoglobin 7.9 gm/dL (13.0-17.0); Mean Corpuscular HGB Conc 32.7 % (32.0-36.0); Mean Corpuscular Hemoglobin 27.4 pg (27.0-34.0); Mean Corpuscular Volume 83.6 fL (80.0-100.0); Mean Platelet Volume 7.7 fL (7.0-11.0); Platelet Count 359 th/mm3 (150-450); Red Blood Count 2.89 mil/mm3 (4.50-5.90); Red Cell Distribution Width 14.5 % (11.6-17.2); White Blood Count 15.2 th/mm3 (4.0-11.0)
[2017-09-25 04:57] LABS: Calcium 7.6 mg/dL (8.5-10.1); Carbon Dioxide 22.7 meq/L (21.0-32.0); Potassium 4.7 meq/L (3.5-5.1)
[2017-09-25] MEDS: Morphine Inj 30 MG/30 ML PCA.VIAL PCA PRN ×2 (06:37→08:31)
[2017-09-25] MEDS: Senna/Docusate Sodium 8.6/50 MG Tablet PO SCH ×2 (08:30→21:18)
[2017-09-25] MEDS: Aspirin 325 MG Tablet PO SCH (08:30)
[2017-09-25] MEDS: Famotidine 20 MG Tablet PO SCH ×2 (08:30→21:18)
--- NOTE | 2017-09-25 09:46 | P.PNVS ---
Subjective Post Op Day #: 1 Procedure: R SFA-PT bypass with composite reversed R basilic and L cephalic vein Subjective/Hospital Course: 62/M S/P redo bypass/ R SFA-PT bypass with composite reversed R basilic and L cephalic vein Pt hypotensive last night Pain controlled Pt w/o weakness,sob or Cp Pt reported improved R LE discomfort R LE warm w/ motor intact B UE swelling noted Objective Vital Signs / I&O: Vital Signs 09/24/17 10:00 09/24/17 11:00 09/24/17 16:36 Temperature 98.3 F 96.0 F L Pulse Rate 66 67 90 Respiratory Rate 14 16 Blood Pressure 127/66 132/62 Pulse Oximetry 98 95 09/24/17 16:45 09/24/17 17:00 09/24/17 17:15 Temperature 96.0 F L Pulse Rate 79 85 83 Respiratory Rate 16 16 16 Blood Pressure 122/59 L 115/58 L 108/53 L Pulse Oximetry 97 97 97 09/24/17 17:30 09/24/17 17:45 09/24/17 18:00 Temperature Pulse Rate 85 91 H 82 Respiratory Rate 16 16 16 Blood Pressure 106/54 L 110/53 L 103/53 L Pulse Oximetry 99 98 100 09/24/17 18:15 09/24/17 18:30 09/24/17 18:37 Temperature 98.4 F Pulse Rate 90 91 H 95 H Respiratory Rate 16 16 Blood Pressure 109/58 L 110/53 L Pulse Oximetry 100 98 09/24/17 18:38 09/24/17 18:39 09/24/17 19:00 Temperature 97.5 F L Pulse Rate 95 H 96 H Respiratory Rate 14 14 16 Blood Pressure 108/53 L 97/51 L Pulse Oximetry 97 94 L 09/24/17 19:15 09/24/17 19:30 09/24/17 19:45 Temperature Pulse Rate 96 H 98 H 101 H Respiratory Rate Blood Pressure 99/51 L 99/55 L 103/55 L Pulse Oximetry 96 96 96 09/24/17 20:00 09/24/17 21:00 09/24/17 22:00 Temperature 97.7 F Pulse Rate 102 H 103 H 107 H Respiratory Rate 16 Blood Pressure 109/55 L 90/52 L 105/59 L Pulse Oximetry 97 95 95 09/24/17 23:00 09/25/17 00:00 09/25/17 01:00 Temperature 97.7 F Pulse Rate 106 H 104 H 104 H Respiratory Rate 16 Blood Pressure 94/52 L Pulse Oximetry 95 09/25/17 02:00 09/25/17 03:00 09/25/17 04:00 Temperature 98.6 F Pulse Rate 100 H 105 H 104 H Respiratory Rate 16 Blood Pressure 122/55 L Pulse Oximetry 94 L 09/25/17 05:00 09/25/17 06:00 09/25/17 07:00 Temperature 97.7 F Pulse Rate 104 H 106 H 106 H Respiratory Rate 16 Blood Pressure 123/58 L Pulse Oximetry 97 09/25/17 08:00 09/25/17 09:00 Temperature Pulse Rate 112 H 108 H Respiratory Rate Blood Pressure Pulse Oximetry Intake & Output 09/24/17 09/25/17 09/25/17 18:59 06:59 18:59 Intake Total 3070 / 3070 2440 / 2440 866 / 866 Output Total 430 / 430 397 / 397 Balance 2640 / 2640 2043 / 2043 866 / 866 Weight 89 kg Intake: IV 120 / 120 1000 / 1000 866 / 866 LR 1000 mL Inj 1,000 ML @ 63 866 / 866 mls/hr IV.CONT .[id number] [facility] Rx# :[id number] LR 1000 mL Inj 1,000 ML @ 30 120 / 120 mls/hr IV.SIG .Q24H [facility] Rx#: [id number] NS Inj 1,000 ML @ 999 mls/hr IV 1000 / 1000 .SIG .Q1H1M [facility] Rx#:[id number] Oral 0 / 0 1440 / 1440 Anesthesia Amount 2500 / 2500 Other 450 / 450 Output: Urine 250 / 250 Urine Amount (Catheter) 150 / 150 375 / 375 Indwelling Temp Sensing 150 / 150 375 / 375 Catheter Wound Drainage Right Upper Arm Other: # Bowel Movements 0 Exam: GENERAL: Afebrile 62/M A&OX3,NAD,Vital signs stable SKIN: Pale Warm and dry Prevena wound vac in place to R LE Incision to upper thigh intact w/o swelling, drainage or erythema B UE dressings I/C/D R CHERIE drain in place (R UE) CARDIOVASCULAR: +S1,S2 RESPIRATORY: BS CTA No accessory muscle use. GASTROINTESTINAL: Abdomen soft, non-tender, nondistended. Bilateral groins S/NT MUSCULOSKELETAL: No cyanosis, or edema. R DP/PT with multiphasic signals heard via Doppler Laboratory Results - last 24 hr 09/24/17 09/25/17 09/25/17 17:42 04:00 04:00 WBC 15.2 H D RBC 2.89 L Hgb 7.9 L D Hct 24.1 L MCV 83.6 MCH 27.4 MCHC 32.7 RDW 14.5 Plt Count 359 MPV 7.7 Sodium 137 Potassium 4.7 Chloride 102 Carbon Dioxide 22.7 Anion Gap 12 BUN 26 H Creatinine 1.64 H Estimated GFR 43 L POC Glucose 257 H Random Glucose 170 H Calcium 7.6 L D MTS Gel Crossmatch Bld Prod Order Comment 09/25/17 06:23 WBC RBC Hgb Hct MCV MCH MCHC RDW Plt Count MPV Sodium Potassium Chloride Carbon Dioxide Anion Gap BUN Creatinine Estimated GFR POC Glucose Random Glucose Calcium MTS Gel Crossmatch See Detail Bld Prod Order Comment Assessment and Plan - Assessment (1) PAD (peripheral artery disease) Code(s): I73.9 - Peripheral vascular disease, unspecified Status: Acute - Plan 62/M s/p R LE redo distal bypass LE warm with motor intact Pain controlled Labs reviewed Plan Pain control Give 2U RBC today Ordered I/S Continue neurovascular checks PT/OOB to chair Continue MIVF Leave Michaud cath in place for accuracy of I/O Bilateral upper extremity dressings to remain- Will remove tomorrow am Consult OT - For anticipated [facility] placement Ina Tompkins NP eVoter/Lumetrics [phone]
[2017-09-25] MEDS: Enoxaparin Inj 40 MG/0.4 ML Syringe SQ SCH (10:50)
[2017-09-26 04:34] LABS: Hematocrit 22.8 % (39.0-51.0); Hemoglobin 7.8 gm/dL (13.0-17.0); Mean Corpuscular HGB Conc 34.3 % (32.0-36.0); Mean Corpuscular Hemoglobin 28.5 pg (27.0-34.0); Mean Corpuscular Volume 82.9 fL (80.0-100.0); Mean Platelet Volume 7.7 fL (7.0-11.0); Platelet Count 252 th/mm3 (150-450); Red Blood Count 2.75 mil/mm3 (4.50-5.90); Red Cell Distribution Width 14.3 % (11.6-17.2); White Blood Count 10.3 th/mm3 (4.0-11.0)
[2017-09-26 05:13] LABS: Calcium 7.4 mg/dL (8.5-10.1); Potassium 3.9 meq/L (3.5-5.1)
[2017-09-26 05:38] LABS: Total Protein 4.8 g/dL (6.4-8.2)
--- NOTE | 2017-09-26 07:48 | P.PNVS ---
Subjective Post Op Day #: 2 Procedure: R SFA-PT bypass with composite reversed R basilic and L cephalic vein Subjective/Hospital Course: OOB TC yesterday occasional hiccups but ricardo po pain reasonably controlled Objective Vital Signs / I&O: Vital Signs 09/25/17 08:00 09/25/17 09:00 09/25/17 09:50 Temperature 97.4 F L Pulse Rate 112 H 108 H 130 H Respiratory Rate 16 Blood Pressure 132/68 Pulse Oximetry 96 09/25/17 10:00 09/25/17 10:15 09/25/17 10:21 Temperature 97.5 F L 97.6 F Pulse Rate 112 H 114 H Respiratory Rate 14 15 15 Blood Pressure 130/64 121/59 L Pulse Oximetry 94 L 93 L 09/25/17 10:30 09/25/17 10:45 09/25/17 11:00 Temperature 98.7 F Pulse Rate 103 H 105 H 102 H Respiratory Rate 16 15 17 Blood Pressure 125/69 126/63 128/68 Pulse Oximetry 97 96 95 09/25/17 11:30 09/25/17 12:00 09/25/17 13:00 Temperature Pulse Rate 96 H 93 H 96 H Respiratory Rate 14 14 Blood Pressure 137/68 127/74 Pulse Oximetry 92 L 93 L 09/25/17 14:00 09/25/17 14:26 09/25/17 14:45 Temperature Pulse Rate 95 H 99 H 91 H Respiratory Rate 16 16 Blood Pressure 155/74 H 137/73 Pulse Oximetry 93 L 93 L 09/25/17 15:00 09/25/17 15:30 09/25/17 16:00 Temperature Pulse Rate 86 93 H 93 H Respiratory Rate 16 15 Blood Pressure 133/66 140/72 Pulse Oximetry 94 L 93 L 09/25/17 17:00 09/25/17 18:00 09/25/17 19:00 Temperature Pulse Rate 90 93 H 92 H Respiratory Rate Blood Pressure Pulse Oximetry 09/25/17 19:23 09/25/17 20:00 09/25/17 21:00 Temperature 98.2 F Pulse Rate 91 H 92 H 90 Respiratory Rate 20 Blood Pressure 145/69 H Pulse Oximetry 96 09/25/17 22:00 09/25/17 23:00 09/25/17 23:43 Temperature 97.8 F Pulse Rate 88 86 99 H Respiratory Rate 19 Blood Pressure 151/71 H Pulse Oximetry 95 09/26/17 00:00 09/26/17 01:00 09/26/17 02:00 Temperature Pulse Rate 92 H 95 H 98 H Respiratory Rate Blood Pressure Pulse Oximetry 09/26/17 03:00 09/26/17 03:18 09/26/17 04:00 Temperature 98.3 F Pulse Rate 93 H 94 H 92 H Respiratory Rate 18 Blood Pressure 159/67 H Pulse Oximetry 94 L 09/26/17 05:00 09/26/17 06:00 Temperature Pulse Rate 94 H 93 H Respiratory Rate Blood Pressure Pulse Oximetry Intake & Output 09/25/17 09/26/17 09/26/17 18:59 06:59 18:59 Intake Total 3599 / 3599 1484 / 1484 Output Total 600 / 600 1465 / 1465 Balance 2999 / 2999 Weight 90 kg Intake: IV 1359 / 1359 944 / 944 LR 1000 mL Inj 1,000 ML @ 63 1359 / 1359 944 / 944 mls/hr IV.CONT .[id number] [facility] Rx# :[id number] Oral 1540 / 1540 540 / 540 Other Rbc As-3 Leukoreduced Unit [id number] Rbc As-3 Leukoreduced Unit [id number] Intake (Blood Product) Amt 675 / 675 Rbc As-3 Leukoreduced Unit 350 / 350 [id number] Rbc As-3 Leukoreduced Unit 325 / 325 [id number] Output: Urine 600 / 600 Urine Amount (Catheter) 1450 / 1450 Indwelling Temp Sensing 1450 / 1450 Catheter Wound Drainage Right Upper Arm Other: Other Intake Source Rbc As-3 Leukoreduced Unit Saline Solution [id number] Rbc As-3 Leukoreduced Unit Saline Solution [id number] Date of Last Bowel Movement 09/23/17 Exam: sitting comfortably mild R LE edema Strong PT signals B UE incisions ok, minimal ecchymoses arms not swollen Laboratory Results - last 24 hr 09/25/17 09/26/17 09/26/17 06:23 03:35 03:35 WBC 10.3 RBC 2.75 L Hgb 7.8 L Hct 22.8 L MCV 82.9 MCH 28.5 MCHC 34.3 RDW 14.3 Plt Count 252 MPV 7.7 Sodium 136 Potassium 3.9 D Chloride 100 Carbon Dioxide 29.0 Anion Gap 7 BUN 18 Creatinine 0.90 Estimated GFR 86 L Random Glucose 114 H Calcium 7.4 L* Prot Corrected Calcium 8.7 Total Protein 4.8 L MTS Gel Crossmatch See Detail Bld Prod Order Comment Assessment and Plan - Assessment (1) PAD (peripheral artery disease) Code(s): I73.9 - Peripheral vascular disease, unspecified Status: Acute - Plan POD#2 s/p redo composite arm vein distal bypass, good PT signals Hct lower but no overt signs of ongoing blood loss and all incisions look good likely dilutional given I>O with resuscitation 1. Continue OOB/PT; will ultimately need rehab 2. 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 D/C Michaud today 4. Lasix today 5. Recheck CBC/BMP tomorrow 6. CHERIE drain removed today on rounds Discharge Planning: likely 3-4 more days needs inpatient rehab
[2017-09-26] MEDS: Aspirin 325 MG Tablet PO SCH (08:06)
[2017-09-26] MEDS: Senna/Docusate Sodium 8.6/50 MG Tablet PO SCH ×2 (08:06→22:28)
[2017-09-26] MEDS: Famotidine 20 MG Tablet PO SCH ×2 (08:06→22:27)
[2017-09-26] MEDS: Morphine Inj 30 MG/30 ML PCA.VIAL PCA PRN (09:24)
[2017-09-26] MEDS: Enoxaparin Inj 40 MG/0.4 ML Syringe SQ SCH (11:33)
[2017-09-27 05:47] LABS: Hematocrit 21.3 % (39.0-51.0); Hemoglobin 7.2 gm/dL (13.0-17.0); Mean Corpuscular HGB Conc 33.7 % (32.0-36.0); Mean Corpuscular Hemoglobin 28.3 pg (27.0-34.0); Mean Corpuscular Volume 83.9 fL (80.0-100.0); Mean Platelet Volume 7.4 fL (7.0-11.0); Platelet Count 275 th/mm3 (150-450); Red Blood Count 2.54 mil/mm3 (4.50-5.90)
[2017-09-27 06:04] LABS: Anion Gap 6 meq/L (5-15); Blood Urea Nitrogen 13 mg/dL (7-18); Carbon Dioxide 31.8 meq/L (21.0-32.0); Chloride 100 meq/L (98-107); Glomerular Filtration Rate Greater Than 89 mL/min (>89); Glucose,Random 88 mg/dL (74-106); Potassium 3.5 meq/L (3.5-5.1); Sodium 138 meq/L (136-145)
--- NOTE | 2017-09-27 07:53 | P.PNVS ---
Subjective Procedure: R SFA-PT bypass with composite reversed R basilic and L cephalic vein Subjective/Hospital Course: WAs able to bear weight on foot yesterday working with PT pain controlled ricardo po + flatus + voiding Objective Vital Signs / I&O: Vital Signs 09/26/17 08:00 09/26/17 09:00 09/26/17 09:57 Temperature Pulse Rate 104 H 101 H Respiratory Rate 18 Blood Pressure Pulse Oximetry 09/26/17 10:00 09/26/17 11:00 09/26/17 11:58 Temperature 97.8 F Pulse Rate 102 H 93 H 96 H Respiratory Rate 18 Blood Pressure 135/67 Pulse Oximetry 95 09/26/17 13:00 09/26/17 13:40 09/26/17 15:00 Temperature 97.8 F Pulse Rate 90 85 98 H Respiratory Rate 18 Blood Pressure 148/86 H Pulse Oximetry 98 09/26/17 16:00 09/26/17 16:46 09/26/17 18:00 Temperature Pulse Rate 93 H 92 H 98 H Respiratory Rate Blood Pressure Pulse Oximetry 09/26/17 19:00 09/26/17 21:00 09/26/17 22:00 Temperature 98.4 F Pulse Rate 95 H 88 92 H Respiratory Rate 18 Blood Pressure 135/66 Pulse Oximetry 94 L 09/26/17 23:00 09/27/17 00:00 09/27/17 01:00 Temperature 98.6 F Pulse Rate 88 84 86 Respiratory Rate 18 Blood Pressure 146/68 H Pulse Oximetry 97 09/27/17 02:00 09/27/17 03:00 09/27/17 04:00 Temperature 98.4 F Pulse Rate 84 88 86 Respiratory Rate 18 Blood Pressure 138/68 Pulse Oximetry 95 09/27/17 05:00 09/27/17 06:00 Temperature Pulse Rate 86 84 Respiratory Rate Blood Pressure Pulse Oximetry Intake & Output 09/26/17 09/27/17 09/27/17 18:59 06:59 18:59 Intake Total 1023 / 1023 440 / 440 Output Total 3850 / 3850 1250 / 1250 Balance -2827 / -2827 -810 / -810 Weight 89.5 kg Intake: IV 63 / 63 LR 1000 mL Inj 1,000 ML @ 63 63 / 63 mls/hr IV.CONT .[id number] [facility] Rx# :[id number] Oral 960 / 960 440 / 440 Output: Urine 3850 / 3850 1250 / 1250 Other: Date of Last Bowel Movement 09/23/17 09/23/17 # Bowel Movements 0 Exam: looks great R and L UE incisions ecchymotic but no hematoma R thigh incision c/d/i R calf Prevena in place foot warm Pulses: strong PT Doppler signals Laboratory Results - last 24 hr 09/27/17 09/27/17 04:50 04:50 WBC 8.0 RBC 2.54 L Hgb 7.2 L Hct 21.3 L MCV 83.9 MCH 28.3 MCHC 33.7 RDW 14.0 Plt Count 275 MPV 7.4 Sodium 138 Potassium 3.5 Chloride 100 Carbon Dioxide 31.8 Anion Gap 6 BUN 13 Creatinine 0.72 Estimated GFR Greater than 89 Random Glucose 88 Calcium 8.0 L Assessment and Plan - Assessment (1) PAD (peripheral artery disease) Code(s): I73.9 - Peripheral vascular disease, unspecified Status: Acute - Plan POD#3 s/p redo composite arm vein distal bypass, good PT signals Hct stable lower but no overt signs of ongoing blood loss and all incisions look good 1. Continue OOB/PT; will ultimately need rehab 2. 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 Tx 2U PRBC and Lasix betwee 4. KCL this morning 5. Recheck BMP, CBC in a.m. Discharge Planning: likely 3-4 more days needs inpatient rehab
[2017-09-27] MEDS: Aspirin 325 MG Tablet PO SCH (08:47)
[2017-09-27] MEDS: Senna/Docusate Sodium 8.6/50 MG Tablet PO SCH ×2 (08:48→21:10)
[2017-09-27] MEDS: Famotidine 20 MG Tablet PO SCH ×2 (08:48→21:04)
[2017-09-27] MEDS ORDERED: Furosemide 20 MG Tablet PO ONE (10:00)
[2017-09-27] MEDS: Enoxaparin Inj 40 MG/0.4 ML Syringe SQ SCH (11:39)
[2017-09-28 04:57] LABS: Hematocrit 27.1 % (39.0-51.0); Hemoglobin 9.1 gm/dL (13.0-17.0); Mean Corpuscular HGB Conc 33.5 % (32.0-36.0); Mean Corpuscular Hemoglobin 28.4 pg (27.0-34.0); Mean Corpuscular Volume 84.8 fL (80.0-100.0); Mean Platelet Volume 6.9 fL (7.0-11.0); Platelet Count 294 th/mm3 (150-450); Red Cell Distribution Width 14.4 % (11.6-17.2)
[2017-09-28 05:32] LABS: Anion Gap 9 meq/L (5-15); Blood Urea Nitrogen 12 mg/dL (7-18); Calcium 8.4 mg/dL (8.5-10.1); Carbon Dioxide 29.6 meq/L (21.0-32.0); Chloride 101 meq/L (98-107); Glomerular Filtration Rate Greater Than 89 mL/min (>89); Glucose,Random 89 mg/dL (74-106); Potassium 3.7 meq/L (3.5-5.1); Sodium 140 meq/L (136-145)
[2017-09-28] MEDS: Senna/Docusate Sodium 8.6/50 MG Tablet PO SCH ×2 (08:35→21:12)
[2017-09-28] MEDS: Famotidine 20 MG Tablet PO SCH ×2 (08:35→21:13)
[2017-09-28] MEDS: Aspirin 325 MG Tablet PO SCH (08:36)
[2017-09-28] MEDS: hydroCHLOROthiazide 25 MG Tablet PO SCH ×2 (08:36→21:22)
--- NOTE | 2017-09-28 10:19 | P.PNVS ---
Subjective Post Op Day #: 4 Procedure: R SFA-PT bypass with composite reversed R basilic and L cephalic vein Subjective/Hospital Course: walked around yesterday - getting stronger + flatus, no BM, no nausea, ricardo po pain controlled Hct w good response to PRBC Objective Vital Signs / I&O: Vital Signs 09/27/17 11:00 09/27/17 12:40 09/27/17 13:01 Temperature 98.3 F 98.5 F 98.3 F Pulse Rate 87 87 Respiratory Rate 16 16 16 Blood Pressure 148/70 H 148/70 H 141/66 H Pulse Oximetry 09/27/17 15:00 09/27/17 16:00 09/27/17 17:00 Temperature 98.5 F Pulse Rate 79 78 78 Respiratory Rate 16 Blood Pressure 164/84 H Pulse Oximetry 09/27/17 17:29 09/27/17 18:00 09/27/17 19:00 Temperature 98.7 F Pulse Rate 81 86 Respiratory Rate 16 Blood Pressure 141/66 H Pulse Oximetry 09/27/17 20:00 09/27/17 20:54 09/27/17 21:00 Temperature 98.1 F Pulse Rate 86 78 Respiratory Rate 16 16 Blood Pressure 156/72 H Pulse Oximetry 09/27/17 22:00 09/27/17 22:49 09/27/17 23:00 Temperature Pulse Rate 80 81 Respiratory Rate 16 Blood Pressure Pulse Oximetry 09/28/17 00:00 09/28/17 00:50 09/28/17 01:00 Temperature 98.1 F Pulse Rate 80 85 70 Respiratory Rate 16 Blood Pressure 168/76 H Pulse Oximetry 94 L 09/28/17 02:00 09/28/17 03:00 09/28/17 04:00 Temperature Pulse Rate 74 74 74 Respiratory Rate Blood Pressure Pulse Oximetry 09/28/17 04:31 09/28/17 05:00 09/28/17 05:52 Temperature 98.2 F Pulse Rate 84 74 Respiratory Rate 16 16 Blood Pressure 187/76 H Pulse Oximetry 96 09/28/17 05:53 09/28/17 07:00 Temperature 98.6 F Pulse Rate 88 Respiratory Rate 16 16 Blood Pressure 149/68 H Pulse Oximetry 96 Intake & Output 09/27/17 09/28/17 09/28/17 18:59 06:59 18:59 Intake Total 914 / 914 1114 / 1114 Output Total 1350 / 1350 1200 / 1200 Balance -436 / -436 -86 / -86 Intake: Oral 480 / 480 680 / 680 Intake (Blood Product) Amt 0 / 0 Rbc As-3 Leukoreduced Unit 0 / 0 [id number] Mass Transfusion Protocol 434 / 434 434 / 434 Output: Urine 1350 / 1350 1200 / 1200 Other: # Voids 1 Date of Last Bowel Movement 09/23/17 09/23/17 Exam: resting comfortably in chair R LE with Prevena R thigh incision ok B UE incisions ok strong PT signal Laboratory Results - last 24 hr 09/25/17 09/27/17 09/28/17 06:23 08:40 04:30 WBC 8.0 RBC 3.20 L Hgb 9.1 L Hct 27.1 L MCV 84.8 MCH 28.4 MCHC 33.5 RDW 14.4 Plt Count 294 MPV 6.9 L Sodium Potassium Chloride Carbon Dioxide Anion Gap BUN Creatinine Estimated GFR Random Glucose Calcium Blood Type O Positive Blood Type Recheck Not needed Antibody Screen Negative MTS Gel Crossmatch See Detail See Detail 09/28/17 04:30 WBC RBC Hgb Hct MCV MCH MCHC RDW Plt Count MPV Sodium 140 Potassium 3.7 Chloride 101 Carbon Dioxide 29.6 Anion Gap 9 BUN 12 Creatinine 0.76 Estimated GFR Greater than 89 Random Glucose 89 Calcium 8.4 L Blood Type Blood Type Recheck Antibody Screen MTS Gel Crossmatch Assessment and Plan - Assessment (1) PAD (peripheral artery disease) Code(s): I73.9 - Peripheral vascular disease, unspecified Status: Acute - Plan POD#4 s/p redo composite arm vein distal bypass, good PT signals Hct with good response to PRBC 1. Continue OOB/PT; will ultimately need rehab - Saturday 2. will start Eliquis tomorrow for graft protection 3. KCL this morning 4. Recheck BMP, CBC in a.m. Discharge Planning: Saturday to inpatient rehab
[2017-09-28] MEDS: Enoxaparin Inj 40 MG/0.4 ML Syringe SQ SCH (10:30)
[2017-09-28] MEDS ORDERED: hydrALAZINE HCl Inj 20 MG/ML Vial IV.PUSH PRN (16:27)
[2017-09-28] MEDS: hydrALAZINE 10 MG Tablet PO PRN (17:05)
[2017-09-29 04:37] LABS: Hematocrit 28.6 % (39.0-51.0); Hemoglobin 9.8 gm/dL (13.0-17.0); Mean Corpuscular HGB Conc 34.1 % (32.0-36.0); Mean Corpuscular Hemoglobin 28.9 pg (27.0-34.0); Mean Corpuscular Volume 84.8 fL (80.0-100.0); Mean Platelet Volume 7.3 fL (7.0-11.0); Platelet Count 332 th/mm3 (150-450); Red Blood Count 3.37 mil/mm3 (4.50-5.90); Red Cell Distribution Width 14.3 % (11.6-17.2); White Blood Count 7.6 th/mm3 (4.0-11.0)
[2017-09-29 05:00] LABS: Anion Gap 7 meq/L (5-15); Blood Urea Nitrogen 10 mg/dL (7-18); Calcium 8.7 mg/dL (8.5-10.1); Carbon Dioxide 32.2 meq/L (21.0-32.0); Chloride 101 meq/L (98-107); Glomerular Filtration Rate Greater Than 89 mL/min (>89); Glucose,Random 83 mg/dL (74-106); Potassium 3.7 meq/L (3.5-5.1); Sodium 140 meq/L (136-145)
--- NOTE | 2017-09-29 07:55 | P.PNVS ---
Subjective Post Op Day #: 5 Procedure: R SFA-PT bypass with composite reversed R basilic and L cephalic vein Subjective/Hospital Course: looks great - no issues still with trouble walking but getting better incisions ok foot warm and feels good ricardo po and voiding, + BM Objective Vital Signs / I&O: Vital Signs 09/28/17 08:00 09/28/17 09:00 09/28/17 10:00 Temperature Pulse Rate 80 76 68 Respiratory Rate Blood Pressure Pulse Oximetry 09/28/17 11:00 09/28/17 12:00 09/28/17 13:00 Temperature 98.4 F Pulse Rate 73 80 90 Respiratory Rate Blood Pressure Pulse Oximetry 09/28/17 14:00 09/28/17 15:00 09/28/17 16:00 Temperature 97.3 F L Pulse Rate 72 78 16 L Respiratory Rate 16 Blood Pressure 188/78 H Pulse Oximetry 09/28/17 19:00 09/28/17 20:00 09/28/17 21:00 Temperature 98.4 F Pulse Rate 66 70 68 Respiratory Rate 16 Blood Pressure 177/81 H Pulse Oximetry 09/28/17 21:22 09/28/17 22:00 09/28/17 23:00 Temperature Pulse Rate 70 66 Respiratory Rate 16 Blood Pressure Pulse Oximetry 09/28/17 23:27 09/29/17 00:00 09/29/17 01:00 Temperature 98.4 F Pulse Rate 73 72 70 Respiratory Rate 16 Blood Pressure 177/81 H Pulse Oximetry 09/29/17 02:00 09/29/17 03:00 09/29/17 03:18 Temperature Pulse Rate 66 68 Respiratory Rate 16 Blood Pressure Pulse Oximetry 09/29/17 04:00 09/29/17 05:00 09/29/17 06:31 Temperature 98.6 F Pulse Rate 78 70 79 Respiratory Rate 16 Blood Pressure 167/76 H Pulse Oximetry 97 Intake & Output 09/28/17 09/29/17 09/29/17 18:59 06:59 18:59 Intake Total 680 / 680 Output Total 1150 / 1150 Balance -1 / -1 -470 / -470 Weight 89.9 kg 88 kg Intake: Oral 680 / 680 Output: Urine 1150 / 1150 Stool Other: # Voids 1 Date of Last Bowel Movement 09/28/17 09/23/17 Exam: no distress B UE incisions c/d/i thigh incision c/d/i calf incision with Prevena, calf soft foot warm and I think I feel a palpable PT Laboratory Results - last 24 hr 09/25/17 09/27/17 09/29/17 06:23 08:40 04:00 WBC 7.6 RBC 3.37 L Hgb 9.8 L Hct 28.6 L MCV 84.8 MCH 28.9 MCHC 34.1 RDW 14.3 Plt Count 332 MPV 7.3 Sodium Potassium Chloride Carbon Dioxide Anion Gap BUN Creatinine Estimated GFR Random Glucose Calcium Blood Type O Positive Blood Type Recheck Not needed Antibody Screen Negative MTS Gel Crossmatch See Detail See Detail 09/29/17 04:00 WBC RBC Hgb Hct MCV MCH MCHC RDW Plt Count MPV Sodium 140 Potassium 3.7 Chloride 101 Carbon Dioxide 32.2 H Anion Gap 7 BUN 10 Creatinine 0.76 Estimated GFR Greater than 89 Random Glucose 83 Calcium 8.7 Blood Type Blood Type Recheck Antibody Screen MTS Gel Crossmatch Assessment and Plan - Assessment (1) PAD (peripheral artery disease) Code(s): I73.9 - Peripheral vascular disease, unspecified Status: Acute - Plan POD#5 s/p redo composite arm vein distal bypass, bypass patent 1. Continue OOB/PT; will ultimately need rehab - Saturday 2. start Eliquis for graft protection Discharge Planning: Saturday to inpatient rehab
[2017-09-29] MEDS: Famotidine 20 MG Tablet PO SCH ×2 (07:59→20:28)
[2017-09-29] MEDS: hydrALAZINE 10 MG Tablet PO PRN (07:59)
[2017-09-29] MEDS: Aspirin 325 MG Tablet PO SCH (08:00)
[2017-09-29] MEDS: Senna/Docusate Sodium 8.6/50 MG Tablet PO SCH ×2 (08:00→20:28)
[2017-09-29] MEDS: hydroCHLOROthiazide 25 MG Tablet PO SCH ×2 (09:07→19:00)
--- NOTE | 2017-09-30 07:29 | P.PNVS ---
Subjective Post Op Day #: 6 Procedure: R SFA-PT bypass with composite reversed R basilic and L cephalic vein Subjective/Hospital Course: continues to look great foiot "tingling" this morning still a little unsteady on feet and feels he'd benefit from rehab Objective Vital Signs / I&O: Vital Signs 09/29/17 08:00 09/29/17 09:00 09/29/17 10:32 Temperature Pulse Rate 81 81 74 Respiratory Rate Blood Pressure 173/80 H Pulse Oximetry 09/29/17 11:00 09/29/17 12:00 09/29/17 13:00 Temperature Pulse Rate 78 76 76 Respiratory Rate Blood Pressure Pulse Oximetry 09/29/17 13:43 09/29/17 15:00 09/29/17 16:00 Temperature 97.9 F Pulse Rate 73 65 63 Respiratory Rate 14 Blood Pressure 166/78 H Pulse Oximetry 97 09/29/17 17:00 09/29/17 18:00 09/29/17 19:00 Temperature 98.1 F Pulse Rate 72 75 75 Respiratory Rate Blood Pressure 164/74 H Pulse Oximetry 99 09/29/17 21:00 09/29/17 22:00 09/29/17 23:00 Temperature 97.8 F Pulse Rate 66 64 73 Respiratory Rate Blood Pressure 170/83 H Pulse Oximetry 95 09/30/17 00:00 09/30/17 01:00 09/30/17 02:00 Temperature Pulse Rate 75 76 77 Respiratory Rate Blood Pressure Pulse Oximetry 09/30/17 03:00 09/30/17 04:00 09/30/17 05:00 Temperature 98.1 F Pulse Rate 84 74 73 Respiratory Rate Blood Pressure 162/76 H Pulse Oximetry 99 09/30/17 06:00 Temperature Pulse Rate 76 Respiratory Rate Blood Pressure Pulse Oximetry Intake & Output 09/29/17 09/30/17 09/30/17 18:59 06:59 18:59 Intake Total 720 / 720 480 / 480 Output Total 1500 / 1500 Balance 720 / 720 -1020 / -1020 Weight 86.5 kg Intake: Oral 720 / 720 480 / 480 Output: Urine 1500 / 1500 Other: # Voids 4 Date of Last Bowel Movement 09/28/17 Exam: B UE incisions c/d/i calf incision with Prevena palpable PT Assessment and Plan - Assessment (1) PAD (peripheral artery disease) Code(s): I73.9 - Peripheral vascular disease, unspecified Status: Acute - Plan POD#6 s/p redo composite arm vein distal bypass, bypass patent 1. Continue OOB/PT; will ultimately need rehab - hopefully today 2. on ASA/Eliquis 3. D/C Prevena today if going to rehab vs tomorrow Discharge Planning: today to inpatient rehab
[2017-09-30] MEDS: Aspirin 325 MG Tablet PO SCH (09:04)
[2017-09-30] MEDS: Famotidine 20 MG Tablet PO SCH (09:04)
[2017-09-30] MEDS: Senna/Docusate Sodium 8.6/50 MG Tablet PO SCH (09:04)
[2017-09-30] MEDS: hydroCHLOROthiazide 25 MG Tablet PO SCH (09:08)
--- NOTE | 2017-09-30 11:41 | P.DS ---
Discharge Summary - Admission Date 09/24/17 16:17 - Admission Diagnosis (1) PAD (peripheral artery disease) - Discharge Diagnosis (1) PAD (peripheral artery disease) Status: Acute - Summary Brief History from admission: 62 yo male with PAD s/p R groin reconstruction, R LE bypass, with recurrent rest pain. No tissue loss. Presents for angiogram in advance of R LE bypass scheduled for Sunday 09/24 Procedure: R SFA-PT bypass with composite reversed R basilic and L cephalic vein Significant Findings: Palpable distal pulses present LE warm with motor intact Hospital Course: 62 yo male with PAD s/p R groin reconstruction, R LE bypass, with recurrent rest pain. No tissue loss. Pt s/p angiogram and R LE bypass scheduled for Sunday 09/24 Pt doing well post operatively, LE warm with motor intact and distal pulses Pt d/c with home health services for continued rehabilitative services and optimal healing Arranged out pt f/u w/ a surveillance KIM/GS E [place] reviewed- Rx pain medication for 3D post operative pain management - Discharge Instructions Any questions or concerns: Call [facility] at [facility] [phone] Discharge Plan - Discharge Disposition Patient Disposition: 03 Discharge to SNF - Discharge Condition Condition: Good - Discharge Order Discharge Orders: Discharge Order (Routine); Ordered 09/30/17 Ordered By: Ina Tompkins - Discharge Details Anticipated Discharge Date: 09/30/17 - Physicians Team Primary Care Provider: Jenaro Skelton Attending Provider: Leonard Rebolledo - Rxs /Orders / Referrals /Forms Prescriptions: New hydrocodone-acetaminophen [[place]] 5-325 mg Tablet 1 tab PO Q4H PRN (Reason: Pain) 3 Days Qty: 18 RF: 0 Continue atorvastatin 20 mg Tablet 20 mg PO DAILY clopidogrel 75 mg Tablet 75 mg PO DAILY lisinopril-hydrochlorothiazide 20-12.5 mg Tablet 1 tab PO DAILY metoprolol succinate 100 mg Tablet Extended Release 24 Hr 100 mg PO DAILY omeprazole magnesium [Prilosec OTC] 20 mg Tablet,Delayed Release (Dr/Ec) 20 mg PO DAILY PRN (Reason: Acid Reflux) Referrals: Jenaro Skelton DO [Primary Care Provider] - See Instructions Leonard Rebolledo MD [Physician] - See Instructions (Your post op follow up is scheduled on 10/23/17 at 3:00 Your surveillance KIM/Graft scan is scheduled on 10/21/17 at 10:00) - Discharge Instructions Additional Instructions: DIET You may resume a heart healthy diet ACTIVITY Activity as tolerated You may shower then pat dry incision No tub baths or swimming until your incision is fully healed WOUND CARE Leave open to air Report any redness, drainage or swelling MEDICATIONS You may resume your daily home medications You were prescribed a narcotic pain medication that may cause constipation- take with an over the counter stool softener You were prescribed a narcotic pain medication that may cause drowsiness- No driving while taking this medication
--- NOTE | 2017-09-30 13:29 | P.DCO ---
- Physical Therapy Order: Evaluate and treat (treat), Improve ambulation, Strength and gait training - Occupational Therapy Order: Evaluate and treat, Improve ADL - Case Management Consult No - Certification I have seen patient Joni Dave on 09/30/17. My clinical findings support the need for the requested home health care services because: Pt clear for d/c with out pt PT/OT for continued rehabilitative services for optimal healing Limited mobility due to disease progression, High risk of falls I certify that my clinical findings support that this patient is homebound because:Pt clear for d/c with out pt PT/OT for continued rehabilitative services for optimal healing Unsteady gait/balance
== END 2017-09-30 18:11 | disposition home or self-care (01) ==
LOC: HSDI 08:29 → HSDC 08:29 → HCPC 15:54
PROVIDERS: ADMIT Surgery; ATTEND Surgery
PROC: [UNRECOGNIZED PROCEDURE] (2017-09-23 11:13)